=== PATIENT | female | born 1935 ===

== ENCOUNTER 2017-06-15 15:20 | Inpatient (IN) | payer MEDICARE, OTHER ==
--- NOTE | 2017-06-15 15:43 | Emergency Department Record ---
History of Present Illness - General Chief Complaint: Shortness of breath Stated Complaint: SOB Time Seen by Provider: 06/15/17 15:31 Source: Patient, Family Mode of Arrival: Ambulatory Limitations: No limitations - History of Present Illness Initial Comments: The patient is here from the [facility] due to being sent over because of hypoxia. She checked in there and was found to have a RA biox of 82%. Due to that the patient was sent to the ER. She states she has had progressively increasing dyspnea and SOB for 8-10 months and it has gotten a lot worse the last 2 weeks. She just moved up here from [place] a week ago and is living with her son. The patient states she did see a auto slip cover installer a month or 2 ago and was told she had scarring on her lungs. She has never smoked but is on 2 inhallers. 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 She was found to have an INR of just > 4.0 last week and was instructed to stop the Coumadin for the 4 day stretch. She thinks she may have taken her regular dose yesterday but is not sure. There is no complaint of CP, back pain, fever, or cough. MD Complaint: Shortness of breath Onset/Timin -: Month(s) Associated Symptoms: Cough Treatments Prior to Arrival: None - Related Data Home Oxygen Therapy: No Home Medications Medication Instructions Recorded Confirmed Last Taken Atorvastatin Calcium 20 mg PO QHS 06/15/17 06/15/17 Unknown Allergies Allergy/AdvReac Type Severity Reaction Status Date / Time No Known Drug Allergies Allergy Verified 06/15/17 15:30 Travel Screening - Travel/Exposure Within Last 30 Days Have you traveled within the last 30 days?: Yes Location Detail:: from [place] - Travel Symptoms Symptom Screening: None Review of Systems Constitutional: Denies: Chills, Fever Eyes: Denies: Eye discharge ENT: Reports: Congestion Respiratory: Reports: Cough, Dyspnea. Denies: Hemoptysis Cardiovascular: Denies: Chest pain Endocrine: Denies: Fatigue Gastrointestinal: Denies: Abdominal pain Genitourinary: Denies: Dysuria Musculoskeletal: Denies: Back pain Past Medical History - SOCIAL HISTORY Smoking Status: Never smoker Alcohol Use: None Drug Use: None - RESPIRATORY Hx Respiratory Disorders: Yes Hx Bronchitis: Yes Hx COPD: Yes Hx Pneumonia: Yes Comment:: chronic cough - CARDIOVASCULAR Hx Cardio Disorders: Yes Hx Deep Vein Thrombosis: Yes Comment:: high cholesterol - NEURO Hx Neuro Disorders: No - GI Hx GI Disorders: No - Hx Genitourinary Disorders: No - ENDOCRINE Hx Endocrine Disorders: No - MUSCULOSKELETAL Hx Musculoskeletal Disorders: No - PSYCH Hx Psych Problems: No - HEMATOLOGY/ONCOLOGY Hx Hematology/Oncology Disorders: No Family Medical History Any Significant Family History?: No Physical Exam - General General Appearance: Alert, Oriented x3, Cooperative, No acute distress - Head Head exam: Atraumatic, Normocephalic, Normal inspection - Eye Eye exam: Normal appearance, PERRL - ENT Throat exam: Normal inspection. negative: Tonsillar erythema, Tonsillar exudate - Neck Neck exam: Normal inspection, Full ROM. negative: Tenderness - Respiratory Respiratory exam: Rhonchi (over the lower 1/2 bilaterally.). negative: Normal lung sounds bilaterally, Accessory muscle use, Decreased breath sounds, Respiratory distress - Cardiovascular Cardiovascular Exam: Regular rate, Normal rhythm, Normal heart sounds - GI/Abdominal GI/Abdominal exam: Soft, Normal bowel sounds. negative: Tenderness - Extremities Extremities exam: Pedal edema (Chronic R>L.). negative: Normal inspection - Neurological Neurological exam: Alert. negative: Motor sensory deficit Course Vital Signs 06/15/17 06/15/17 15:23 15:33 Temperature 98.3 F Pulse Rate 96 H Respiratory 20 Rate Blood Pressure 131/83 Pulse Ox 82 L 98 - Reevaluation(s) Reevaluation #1: The patient is doing very well on the oxygen and her sats are now 98% on a 2L NC. 06/15/17 15:49 Reevaluation #2: The patient is doing well. She is on the oxygen and speaking in full sentences with no CHARITO. It appears she has significant CHF and we will start her on some Lasix. I did discuss keeping the patient in the hospital here at [facility] and she does agree to the plan. 06/15/17 16:46 Reevaluation #3: The patient is doing very well at this time. I did discuss the case with Mela MENARD) and she does accept the admission for Dr. Baca. 06/15/17 17:06 06/15/17 17:51 The patient is doing very well at this time. She did urinate about 1000cc's of urine after the first IV dose of Lasix. Medical Decision Making - Data Complexity MDM Data: Labs Ordered and/or Reviewed, X-Ray Ordered and/or Reviewed, EKG Ordered and/or Reviewed - Lab Data Result diagrams: 06/15/17 15:40 06/15/17 15:40 - EKG Data -: EKG Interpreted by Me (NSR at 90, Inverted T changes V1-4, III, and AVF.) - Radiology Data Radiology results: Report reviewed (CXR: Significant airspace dz most consistent with CHF.) Disposition Disposition: Admit Clinical Impression: Congestive heart failure Qualifiers: Congestive heart failure type: unspecified congestive heart failure type Congestive heart failure chronicity: unspecified congestive heart failure chronicity Qualified Code(s): I50.9 - Heart failure, unspecified Disposition: Still a Patient at [facility] Decision to Admit: Admit from ER Decision to Admit Date: 06/15/17 Decision to Admit Time: 17:07 Accepting Physician: Phuong Time Discussed w/Accepting Physician: 17:07 Condition: (2) Stable Forms: Patient Portal Access Time of Disposition: 17:07 Quality - Quality Measures Quality Measures: N/A - Blood Pressure Screening View Details: Yes Does Patient Have Any of the Following: No Blood Pressure Classification: Pre-Hypertensive BP Reading Systolic Measurement: 131 Diastolic Measurement: 83 Screening for High Blood Pressure: < Pre-Hypertensive BP, F/U Documented > [ G8950] Pre-Hypertensive Follow-up Interventions: Referral to alternative/primary care provider.
[2017-06-15] MEDS ORDERED: IPRATROPIUM/ALBUTEROL (0.5MG/3MG) NEB INH ONE (15:45)
[2017-06-15 15:52] LABS: BASO % 0.5 % (0-6); GRAN % 79.1 % (47-80); HEMATOCRIT 35.7 % (35.0-47.0); HEMOGLOBIN 11.1 gm/dl (11.6-16.0); LYMPH % 11.3 % (16-45); MEAN CELL VOLUME 91.8 fl (81-97); MEAN CORPUSCULAR HEMOGLOBIN 28.5 pg (27-33); MEAN CORPUSCULAR HGB CONC 31.1 g/dl (32-36); MEAN PLATELET VOLUME 9.8 fl (7.4-10.4); MONO % 7.1 % (0-9); PLATELET COUNT 397 K/uL (130-400); RED BLOOD COUNT 3.89 M/uL (3.80-5.40); RED CELL DISTRIBUTION WIDTH 15.2 % (11.5-14.5); WHITE BLOOD COUNT W/O DIFF 10.2 K/uL (4.2-12.2)
[2017-06-15 16:07] LABS: INR 1.13; PARTIAL THROMBOPLASTIN TIME 26.3 SECONDS (24.5-39.1); PROTHROMBIN TIME (PATIENT) 12.2 SECONDS (9.5-12.1)
[2017-06-15] MEDS ORDERED: ENOXAPARIN 100 MG/ML SYR SQ ONE (16:17)
[2017-06-15 16:21] LABS: ALB/GLOB RATIO 0.8 (1.1-1.8); ALBUMIN 3.1 g/dL (4.0-5.0); ALKALINE PHOSPHATASE 84 U/L (35-104); ALT/SGPT 20 U/L (<33); AST/SGOT 32 U/L (10.0-35.0); BLOOD UREA NITROGEN 20 mg/dL (8-23); CKMB 2.8 ng/mL (<3.77); CREATINE PHOSPHOKINASE 78 U/L (26-192); CREATININE 0.5 mg/dL (0.5-0.9); EST GLOMERULAR FILTRATION RATE > 60 mL/min; GLUCOSE,RANDOM 100 mg/dL (74-109)
[2017-06-15] MEDS ORDERED: FUROSEMIDE IV 40MG/4ML VIAL IVP ONE (16:26)
[2017-06-15] MEDS ORDERED: ALBUTEROL SULFATE 1.25 MG IH SCH (18:40)
[2017-06-15] MEDS ORDERED: WARFARIN 2.5 MG TAB PO SCH (18:40)
[2017-06-15] MEDS ORDERED: WARFARIN 5 MG TAB PO SCH (18:40)
[2017-06-15] MEDS: ENOXAPARIN 60 MG/0.6 ML SYR SQ SCH ×2 (18:58→21:24)
[2017-06-15 20:41] LABS: CKMB 3.2 ng/mL (<3.77)
[2017-06-15] MEDS: ATORVASTATIN 20 MG TABLET PO SCH (21:24)
[2017-06-16 04:29] LABS: BLOOD UREA NITROGEN 21 mg/dL (8-23); CREATININE 0.6 mg/dL (0.5-0.9); EST GLOMERULAR FILTRATION RATE > 60 mL/min; GLUCOSE,RANDOM 109 mg/dL (74-109)
[2017-06-16 04:30] LABS: BASO % 0.6 % (0-6); CKMB 2.6 ng/mL (<3.77); EOS % 4.5 % (0-6); GRAN % 69.5 % (47-80); HEMATOCRIT 35.1 % (35.0-47.0); HEMOGLOBIN 10.5 gm/dl (11.6-16.0); LYMPH % 17.4 % (16-45); MEAN CELL VOLUME 92.9 fl (81-97); MEAN CORPUSCULAR HGB CONC 29.9 g/dl (32-36); MEAN PLATELET VOLUME 10.1 fl (7.4-10.4); PLATELET COUNT 377 K/uL (130-400); RED BLOOD COUNT 3.78 M/uL (3.80-5.40); RED CELL DISTRIBUTION WIDTH 15.3 % (11.5-14.5); WHITE BLOOD COUNT W/O DIFF 9.4 K/uL (4.2-12.2)
[2017-06-16 04:31] LABS: MEAN CORPUSCULAR HEMOGLOBIN 27.7 pg (27-33)
--- NOTE | 2017-06-16 08:00 | RADIOLOGY REPORT ---
EXAM: CHEST, TWO VIEWS HISTORY: ACUTE DIFFICULTY BREATHING, FALL. TECHNIQUE: Two views of the chest were obtained. Comparison: None. Encounter: Initial. FINDINGS: Moderately dense patchy air space disease most notably in the right mid lung to lower lung field. Mild scattered air space disease throughout the left lung. Biapical pleural thickening likely due to scarring. The cardiac silhouette is top normal in size. Partial obscuration of the diaphragm. Osteopenia compromises bone detail. No displaced rib fractures. IMPRESSION: 1. MODERATELY DENSE AIR SPACE DISEASE IN THE RIGHT MID TO LOWER LUNG FIELD GREATER THAN MILDLY DENSE SCATTERED AIR SPACE DISEASE THROUGHOUT THE LEFT LUNG. FINDINGS COULD RELATE TO ASYMMETRIC PULMONARY EDEMA OR PNEUMONITIS. 2. NO DISPLACED RIB FRACTURES. JOB NUMBER: [id number] [facility]
[2017-06-16] MEDS: FUROSEMIDE IV 20MG/2ML VIAL IVP SCH ×2 (09:27→16:02)
[2017-06-16] MEDS: ACETAMINOPHEN 500 MG TABLET PO PRN (09:29)
[2017-06-16] MEDS: BENZONATATE 100 MG CAPSULE PO PRN (09:29)
[2017-06-16] MEDS: ENOXAPARIN 60 MG/0.6 ML SYR SQ SCH ×2 (09:30→21:18)
[2017-06-16] MEDS ORDERED: ALBUTEROL SULFATE (0.083%) 2.5 MG/3 ML NEB INH PRN (11:19)
[2017-06-16] MEDS ORDERED: AZITHROMYCIN 500 MG TABLET PO ONE (12:53)
[2017-06-16] MEDS: WARFARIN 5 MG TAB PO SCH (14:56)
[2017-06-16] MEDS: CEFTRIAXONE SODIUM 1 GM in 0.9 % SODIUM CHLORIDE 100ML 100 ML IVPB SCH ×2 (14:56→21:17)
[2017-06-16] MEDS ORDERED: WARFARIN 2.5 MG TAB PO SCH (16:00)
[2017-06-16] MEDS: BREO (FLUTICASONE/VILANTEROL) 200MCG/25MCG INHALER INH SCH (19:25)
[2017-06-16] MEDS: ATORVASTATIN 20 MG TABLET PO SCH (21:18)
[2017-06-17] MEDS: BENZONATATE 100 MG CAPSULE PO PRN (06:45)
[2017-06-17] MEDS: ACETAMINOPHEN 500 MG TABLET PO PRN (06:46)
[2017-06-17 07:02] LABS: INR 1.25; PROTHROMBIN TIME (PATIENT) 13.5 SECONDS (9.5-12.1)
--- NOTE | 2017-06-17 07:24 | CT ANGIOGRAM REPORT ---
EXAM: CTA OF THE CHEST HISTORY: CHRONIC DIFFICULTY BREATHING. TECHNIQUE: CTA of the chest was performed using pulmonary embolus protocol following IV administration of 100 ml of Omnipaque 350 contrast. Axial images were obtained with coronal and sagittal MIP reconstructions. Comparison: None. FINDINGS: The mediastinal vasculature enhances normally. There is no intraluminal filling defect to suggest pulmonary embolus. Negative for thoracic aortic aneurysm or dissection. Cardiomegaly. Significant enlargement of the right atrium. There is a small pericardial effusion. Limited evaluation of the upper abdomen is unremarkable. The osseous structures are grossly intact. Small bilateral pleural effusions, greater on the right. No pneumothorax. There are mixed interstitial and air space opacities bilaterally , as well as rather extensive areas of bronchiectasis, particularly in the lung bases as well as in the right middle lobe and lingula. Nodular air space opacities are present bilaterally. Findings may relate to a component of mucous plugging with small airway inflammation/infection and associated pneumonitis. Recommend follow-up to insure improvement. IMPRESSION: 1. NEGATIVE FOR PULMONARY EMBOLUS, THORACIC AORTIC ANEURYSM, OR DISSECTION. 2. CARDIOMEGALY. SMALL PERICARDIAL EFFUSION. 3. SMALL BILATERAL PLEURAL EFFUSIONS. 4. AREAS OF BRONCHIECTASIS, BRONCHIAL WALL THICKENING WELL MIXED INTERSTITIAL INTERSPACE OPACITIES BILATERALLY, MOST PRONOUNCED IN THE LUNG BASES. FINDINGS LIKELY RELATE TO AREAS OF PNEUMONITIS SECONDARY TO MUCOUS PLUGGING WITH SMALL AIRWAY INFLAMMATION AND INFECTION. RECOMMEND FOLLOW-UP TO INSURE RESOLUTION. JOB NUMBER: [id number] MTDD
[2017-06-17] MEDS: CEFTRIAXONE SODIUM 1 GM in 0.9 % SODIUM CHLORIDE 100ML 100 ML IVPB SCH ×2 (09:34→21:37)
[2017-06-17] MEDS: ENOXAPARIN 60 MG/0.6 ML SYR SQ SCH ×2 (09:34→21:38)
[2017-06-17] MEDS: AZITHROMYCIN 500 MG TABLET PO SCH (09:34)
[2017-06-17] MEDS ORDERED: FUROSEMIDE 20 MG TABLET PO SCH (10:00)
[2017-06-17] MEDS: BREO (FLUTICASONE/VILANTEROL) 200MCG/25MCG INHALER INH SCH (10:08)
--- NOTE | 2017-06-17 12:31 | History and Physical Report ---
CHIEF COMPLAINT: Dyspnea, cough, pulse ox around 82% in the emergency department. Patient denies a sore throat. She states that the cough has gotten worse in the last 3 or 4 days but has had dyspne a with exertion for the last 2 months. In the emergency department, she was seen by Dr. Ayala and admitted to the hospital with a diagnosis of congestive heart failure, hypoxia on room air, COPD. Her D-dimer was elevated in the emergency department at 0.89. A CTA was done after my evaluation to rule out a PE. PAST MEDICAL HISTORY: 1. COPD. 2. DVT in the right leg, in the thigh, July 2016, on Coumadin therapy. 3. Hypercholesterolemia. 4. Bronchiectasis of the lungs. CURRENT MEDICATIONS: On admission: Coumadin 5 mg on Thursday, Thursday, Thursday, 2.5 mg the rest of the week; benzoate 100 mg t.i.d., atorvastatin 20 mg each night, Symbicort 160/4.5 mcg 2 puffs b.i.d., Ventolin inhaler 1-2 puffs every 4 hours while awake. ALLERGIES: No known drug allergies. FAMILY/PSYCHOSOCIAL HISTORY: She never smoked cigarettes. No alcohol or drug use. No significant family history. REVIEW OF SYSTEMS: HEENT: She does have congestion and cough. No sore throat. Cardiovascular: No chest pain, palpitations, arrhythmias. Respiratory: She is short of breath with exertion and a chronic cough. Gastrointestinal: No nausea, vomiting, diarrhea, black stools, or bloody stools. Genitourinary: No dysuria, hematuria, frequency, or burning on urination. Musculoskeletal: She has arthritis in all the joints. Neurologic: No CVA, paralysis, or paresthesias. Gynecological: No lumps in her breasts or abnormal vaginal bleeding at this time. Endocrine: No diabetes or thyroid disease. Integument: No rash, ulcers, change in moles, or yellow skin. PHYSICAL EXAMINATION: VITAL SIGNS: Height 5 feet. Weight 124 pounds. Temperature 97.8. Pulse 81. Blood pressure 119/69. Respiratory rate 18. Pulse ox 97% on 2 liters. She was 82% with room air pulse ox in the emergency department. HEENT: Pupils equal, round, and reactive to light and accommodation. Extraocular muscles intact. Fundoscopic exam benign. Tympanic membranes are negative. No oral lesions. NECK: Supple. No jugular venous distention. No hepatojugular reflux. No carotid bruits. Thyroid is smooth. LUNGS: She has bilateral wheezing, bilateral rales, and congestion. HEART: Regular rate and rhythm without murmurs, clicks, rubs, or gallops. ABDOMEN: Soft, nontender, no hepatosplenomegaly, no masses, no tenderness. Bowel sounds active. No bruits. EXTREMITIES: No pitting edema. No cyanosis, no clubbing. Full range of motion. Peripheral pulses good. GYNECOLOGICAL/BREASTS: Deferred. RECTAL: Deferred. NEUROLOGIC: Cranial nerves 2 through 12 intact. No gross defects. Sensation normal. Strength normal. Deep tendon refluxes good bilaterally. Babinski is negative. MENTAL STATUS: Alert and oriented x3. IMPRESSION: 1. COPD with exacerbation and infiltrate in the right lung. 2. Possible pneumonia. 3. Possible CHF. 4. Fluid overload. 5. DVT of the right leg and on Coumadin therapy. PLAN: Rocephin IV 1 gram every 12 hours, azithromycin 500 mg daily. Lasix has been given to her twice a day IV. We will decrease it to once a day, 20 mg orally. Cardiac monitoring/echocardiogram was done today. We will compare it to the echo from September 2016, which showed a normal echo. MTDD
[2017-06-17] MEDS ORDERED: LISINOPRIL 5 MG TABLET PO ONE (16:45)
[2017-06-17] MEDS: WARFARIN 5 MG TAB PO SCH (18:08)
[2017-06-17] MEDS: ATORVASTATIN 20 MG TABLET PO SCH (21:37)
[2017-06-18] MEDS: ACETAMINOPHEN 500 MG TABLET PO PRN (07:26)
[2017-06-18] MEDS: BENZONATATE 100 MG CAPSULE PO PRN (07:29)
[2017-06-18 07:36] LABS: INR 1.42; PROTHROMBIN TIME (PATIENT) 15.4 SECONDS (9.5-12.1)
--- NOTE | 2017-06-18 08:40 | RADIOLOGY REPORT ---
EXAM: CHEST, TWO VIEWS HISTORY: DIFFICULTY BREATHING. TECHNIQUE: Frontal and lateral views of the chest were obtained. Comparison: 06/15/17 chest. FINDINGS: The heart size is stable. Interstitial anterior space opacities bilaterally with small bilateral effusions. No pneumothorax. IMPRESSION: LITTLE INTERVAL CHANGE. JOB NUMBER: [id number] MTDD
[2017-06-18] MEDS: BREO (FLUTICASONE/VILANTEROL) 200MCG/25MCG INHALER INH SCH (09:44)
[2017-06-18] MEDS: CEFTRIAXONE SODIUM 1 GM in 0.9 % SODIUM CHLORIDE 100ML 100 ML IVPB SCH (09:48)
[2017-06-18] MEDS: AZITHROMYCIN 500 MG TABLET PO SCH (10:03)
[2017-06-18] MEDS: ENOXAPARIN 60 MG/0.6 ML SYR SQ SCH (10:04)
[2017-06-18] MEDS ORDERED: FUROSEMIDE 20 MG TABLET PO ONE (10:36)
[2017-06-18] MEDS ORDERED: METHYLPREDNISOLONE SOD 40MG/VIAL IVP ONE (10:49)
[2017-06-18 11:02] LABS: BLOOD UREA NITROGEN 16 mg/dL (8-23); CREATININE 0.4 mg/dL (0.5-0.9); EST GLOMERULAR FILTRATION RATE > 60 mL/min; GLUCOSE,RANDOM 86 mg/dL (74-109)
[2017-06-18] MEDS ORDERED: WARFARIN 5 MG TAB PO ONE (12:16)
--- NOTE | 2017-06-18 12:17 | Discharge Note ---
VTE H&P Assessment - Risk for VTE Risk for VTE: Yes Risk Level: Moderate Risk Assessment Date: 06/15/17 Risk Assessment Time: 08:00 VTE Orders Placed or Will Be Placed: Yes Discharge Medications - Discharge Medications Prescriptions: Azithromycin [Zithromax] 500 mg PO DAILY #7 tab Cephalexin [Keflex] 500 mg PO QID #40 cap Home Medications: Ambulatory Orders Albuterol Sulfate [Ventolin Hfa] 1 - 2 puff IH Q4-6HR #1 inhaler 06/15/17 [Last Taken Unknown] Atorvastatin Calcium 20 mg PO QHS 06/15/17 [Last Taken Unknown] Benzonatate 100 mg PO TID PRN cap 06/15/17 [Last Taken Unknown] Budesonide/Formoterol Fumarate [Symbicort 160-4.5 Mcg Inhaler] 2 puff IH BID puff 06/15/17 [Last Taken 06/15/17] Warfarin Sodium 2.5 mg PO SUTUTHSA tab 06/15/17 [Last Taken Unknown] Warfarin Sodium 5 mg PO MOWEFR tab 06/15/17 [Last Taken Unknown] Acetaminophen [Tylenol 500Mg Tab] 1,000 mg PO Q8H PRN tablet 06/18/17 [Last Taken Unknown] Azithromycin [Zithromax] 500 mg PO DAILY #7 tab 06/18/17 [Last Taken Unknown] Benzonatate [Tessalon Perles] 100 mg PO TID PRN capsule 06/18/17 [Last Taken Unknown] Cephalexin [Keflex] 500 mg PO QID #40 cap 06/18/17 [Last Taken Unknown] Discharge Note - Date Date of Discharge Note: 06/18/17 Disposition: Home, Self-Care Condition: (2) Stable Additional Instructions: follow up with Dr. Ortiz on thursday at 11 am [id number] take coumadin 5mg on Thursday and thursday and thursday and 2.5 mg on , , and thursday home oxygen 2 liters per minute Forms: Patient Portal Access Activity at Discharge: Increase Activity as Tolerated Diet at Discharge: Low Salt Diet
--- NOTE | 2017-06-18 13:19 | Discharge Summary ---
DATE OF DISCHARGE: 06/18/2017 DISCHARGE DIAGNOSES: 1. Pneumonia, right middle lobe pneumonia. 2. Chronic obstructive pulmonary disease. 3. Diastolic heart failure. 4. Chronic kidney disease stage 2. 5. History of DVT of the right leg and thigh, on Coumadin therapy. 6. History of bronchiectasis of the lungs. 7. Hypoxia requiring home oxygen. ATTENDING PHYSICIAN: Shukri Ortiz DO REASON FOR HOSPITALIZATION: Dyspnea, cough, and hypoxia. This 81-year-old female presented to the emergency department. Pulse ox in the emergency department was 82%. She denies sore throat. She has a cough. She is progressively worse, dyspnea over the last 3-4 days. She is new to the area. She moved up from [place]. Dr. Ayala evaluated the patient and admitted the patient to the hospital with congestive heart failure, hypoxia on room air. D-dimer was elevated in the emergency department at 0.89. CTA was done after my evaluation to rule out PE. THERAPY PROVIDED: IV Rocephin and azithromycin. One dose of Solu-Medrol. Lasix initially 20 mg b.i.d., switched down to 20 mg daily and then it looked like she was getting dry, so we stopped the Lasix. We will follow outpatient closely. Started lisinopril 2.5 mg a day, low dose. CONDITION ON DISCHARGE: Improved; however, her hypoxia is still bad. She drops down to 84% on room air. She is improved. She is ambulatory. She is much more ambulatory. She is feeling better. She is still brining up clear sputum. DISCHARGE INSTRUCTIONS: Follow up with Dr. Ortiz on 06/22/2017, at 11 a.m. Antibiotics will be Keflex 500 mg 4 times a day, Z-Gordo 500 mg daily for 7 days. Continue her home medications. The Coumadin we are increasing slightly to take 5 mg on Thursday/Thursday/Thursday/Thursday and 2.5 mg Thursday//Thursday. Lisinopril low dose 2.5 mg once a day. Home oxygen at 2L/min nasal cannula. ADDENDUM: Her blood pressure was running low, 100/40. Decided to hold the lisinopril until in the office because of her low blood pressures. [facility]
--- NOTE | 2017-06-18 15:21 | Medical Records Consult ---
DATE OF CONSULTATION: 06/17/17 REASON FOR CONSULTATION: ACUTE CONGESTIVE HEART FAILURE. HISTORY: Ms. Evans is 82 years old, who moved from [place] to [place] the past few days to live with her son. She had been having progressive dyspnea and was asked to follow-up with a physician here in the local area. Ms. Evans yesterday presented for INR check at [facility] because she has a history of chronic DVTs and is on Warfarin. When she presented, she was found to have pulse oximetry of 82% and was quite dyspneic and therefore she was admitted to [facility]. Chest x-ray demonstrates evidence of bilateral pleural effusions along with possible infiltrate. She has been having a productive cough with greenish sputum. She has had a history of bronchitis and pneumonia. Ms. Evans has no previous history of coronary artery disease, diabetes, hypertension, or tobacco use. She is on Atorvastatin at home for hyperlipidemia. Her laboratory profile was essentially unremarkable except for a pro BNP that was greater than 8,800. She was given Furosemide IV for the past few days and has had significant improvement in her dyspnea although she remains dyspneic, she can now walk across the room. She denies angina, palpitations, TIA, or syncope. PAST MEDICAL HISTORY: Significant for bronchitis and pneumonia. DVT in the and the last one in 2016. PAST SURGICAL HISTORY: Noncontributory. FAMILY HISTORY: Noncontributory. PHYSICAL EXAM: VITAL SIGNS: She is currently afebrile. Blood pressure 131/83. Pulse 96. Respirations 15. LUNGS: There are rhonchi bilaterally. CARDIAC EXAM: Normal. ABDOMEN: Soft. EXTREMITIES: Reveal no significant peripheral edema. ECG: Demonstrates sinus rhythm with nonspecific T-wave changes. LABORATORY: Her white count is 9.4, hemoglobin 10.5, platelets 377,000, sodium 142, potassium 4.1, BUN 20, creatinine 0.5. CK-MBs were negative. Troponin was negative x3. ECHOCARDIOGRAM: Echocardiogram on 06/16/2017 demonstrated normal ejection fraction with severe right-sided enlargement and grade 1 diastolic dysfunction. She has mild to moderate elevation of pulmonary pressures. IMPRESSION/PLAN: Ms. Evans is 81 years old, who presents with acute bronchitis and acute diastolic congestive heart failure. She has no previous history of coronary artery disease or heart failure symptoms. She has poor diet and eats fast food with significant salt intake. Ms. Evans has responded to diuretics pretty well but she continues to have a very productive cough. Ms. Evans is on appropriate antibiotic regimen per the Primary Team. At this time , I recommend discontinue diuretics since she is no longer having significant urine output. Ms. Evans should be on low-dose FITO on discharge. I would consider Lisinopril 5 mg daily. She will remain on Warfarin for history of recurrent DVTs. Ms. Evans's echo demonstrates normal ejection fraction with grade 1 diastolic dysfunction. As an outpatient, she will require a stress Cardiolite. Upon discharge, please have her follow-up with [facility] in one to two weeks at which time we will schedule testing as appropriate. JOB NUMBER: [id number] MTDD
== END 2017-06-18 15:26 | disposition home or self-care (01) | DRG 193 ==
LOC: ER 15:20 → MEDSURG 17:59
PROVIDERS: ADMIT Internal Medicine; ATTEND Emergency Medicine
DX: J18.9 Pneumonia, unspecified organism (principal); I50.31 Acute diastolic (congestive) heart failure; J44.0 Chronic obstructive pulmonary disease with (acute) lower respiratory infection; E78.00 Pure hypercholesterolemia, unspecified; J44.1 Chronic obstructive pulmonary disease with (acute) exacerbation; R09.02 Hypoxemia; Z86.718 Personal history of other venous thrombosis and embolism; Z79.01 Long term (current) use of anticoagulants; N18.2 Chronic kidney disease, stage 2 (mild)
CPT/HCPCS: 71020; 71275; 80048; 80053; 82550; 82553; 83880; 84484; 85025; 85379; 85610; 85730; 93005; 93010; 93041; 94620; 94640; 94760; 94761; 96374; 99223; 99233; 99239; 99285; J1650; J1940; J2920

== ENCOUNTER 2017-08-27 09:20 | Inpatient (IN) | payer MEDICARE, OTHER ==
[2017-08-27] MEDS ORDERED: IPRATROPIUM/ALBUTEROL (0.5MG/3MG) NEB INH ONE (09:41)
[2017-08-27] MEDS ORDERED: METHYLPREDNISOLONE PF 125MG/VIAL IVP ONE (09:41)
--- NOTE | 2017-08-27 09:48 | Emergency Department Record ---
History of Present Illness - General Chief Complaint: Shortness of breath Stated Complaint: CHARITO Time Seen by Provider: 08/27/17 09:35 Source: Patient Mode of Arrival: Wheelchair Limitations: No limitations - History of Present Illness Initial Comments: The patient is here with family due to having a week hx of cough, SOB, CHARITO, and weakness. She also describes a lack of energy. There has been no reported fever , chills, CP, back pain or falls. The patient has a hx of COPD, CHF, and pneumonia and is on home O2 2 liters. MD Complaint: Cough, Shortness of breath Onset/Timin -: Days(s) Improves With: Nothing Worsens With: Nothing Known History Of: Congestive heart failure, COPD Associated Symptoms: Cough, Nausea/vomiting Treatments Prior to Arrival: None - Related Data Home Oxygen Therapy: Yes Home Oxygen Amount: 2 Liters Home Medications Medication Instructions Recorded Confirmed Last Taken Albuterol Sulfate 0.083% [Neb] 3 ml NEB .EVERY 4-6 HOURS PRN 08/27/17 08/27/17 Unknown Furosemide [Lasix] 20 mg PO DAILY 08/27/17 08/27/17 Unknown Potassium Chloride 10 meq PO DAILY 08/27/17 08/27/17 Unknown Previous Rx's Medication Instructions Recorded Acetaminophen [Tylenol 500Mg Tab] 1,000 mg PO Q8H PRN tablet 06/18/17 Allergies Allergy/AdvReac Type Severity Reaction Status Date / Time No Known Drug Allergies Allergy Verified 08/27/17 09:27 Travel Screening - Travel/Exposure Within Last 30 Days Have you traveled within the last 30 days?: No Review of Systems Constitutional: Reports: Malaise. Denies: Chills, Fever Eyes: Denies: Eye discharge ENT: Reports: Congestion Respiratory: Reports: Cough, Dyspnea. Denies: Hemoptysis Cardiovascular: Denies: Arrhythmia, Chest pain Endocrine: Reports: Fatigue Gastrointestinal: Denies: Abdominal pain Genitourinary: Denies: Dysuria Musculoskeletal: Denies: Back pain Past Medical History - SOCIAL HISTORY Smoking Status: Never smoker Alcohol Use: None Drug Use: None - RESPIRATORY Hx Respiratory Disorders: Yes Hx Bronchitis: Yes Hx COPD: Yes Hx Pneumonia: Yes Comment:: chronic cough - CARDIOVASCULAR Hx Cardio Disorders: Yes Hx Deep Vein Thrombosis: Yes Comment:: high cholesterol - NEURO Hx Neuro Disorders: No - GI Hx GI Disorders: No - Hx Genitourinary Disorders: No - ENDOCRINE Hx Endocrine Disorders: No - MUSCULOSKELETAL Hx Musculoskeletal Disorders: No - PSYCH Hx Psych Problems: No - HEMATOLOGY/ONCOLOGY Hx Hematology/Oncology Disorders: No Family Medical History Any Significant Family History?: No Physical Exam - General General Appearance: Alert, Oriented x3, Cooperative, No acute distress - Head Head exam: Atraumatic, Normocephalic, Normal inspection - Eye Eye exam: Normal appearance, PERRL - ENT Throat exam: Normal inspection. negative: Tonsillar erythema, Tonsillar exudate - Neck Neck exam: Normal inspection, Full ROM. negative: Lymphadenopathy, Tenderness - Respiratory Respiratory exam: Rhonchi (at the bases.), Wheezes. negative: Normal lung sounds bilaterally - Cardiovascular Cardiovascular Exam: Regular rate, Normal rhythm, Normal heart sounds, Tachycardia - GI/Abdominal GI/Abdominal exam: Soft, Normal bowel sounds. negative: Tenderness - Extremities Extremities exam: Normal inspection, Full ROM, Normal capillary refill. negative: Tenderness - Neurological Neurological exam: Alert. negative: Motor sensory deficit Course Vital Signs 08/27/17 09:29 Temperature 99.0 F Pulse Rate 121 H Respiratory 38 H Rate Blood Pressure 127/58 Pulse Ox 88 L - Reevaluation(s) Reevaluation #1: The patient is doing much better at this time. Her breathing is improved and her biox is now 92-93%. Her RR is improved and HR is now 90. I did discuss the lab and xray results with the patient and the need for admission. 08/27/17 10:59 Reevaluation #2: I did discuss the case with Dr. Ortiz and he does accept the admission. 08/27/17 11:11 Medical Decision Making - Data Complexity MDM Data: Labs Ordered and/or Reviewed, X-Ray Ordered and/or Reviewed, EKG Ordered and/or Reviewed - Lab Data Result diagrams: 08/27/17 09:35 08/27/17 09:35 - EKG Data -: EKG Interpreted by Me EKG: No Acute Changes, Unchanged From Previous - Radiology Data Radiology results: Report reviewed (CXR: Diffuse interstitial changes, no sig change from 06/09.) Disposition Disposition: Admit Clinical Impression: COPD exacerbation Pneumonia Qualifiers: Pneumonia type: due to unspecified organism Laterality: bilateral Lung location : unspecified part of lung Qualified Code(s): J18.9 - Pneumonia, unspecified organism Disposition: Still a Patient at [facility] Decision to Admit: Admit from ER Decision to Admit Date: 08/27/17 Decision to Admit Time: 11:12 Accepting Physician: Diana Time Discussed w/Accepting Physician: 11:12 Condition: (2) Stable Time of Disposition: 11:12 Quality - Quality Measures Quality Measures: N/A - Blood Pressure Screening View Details: Yes Does Patient Have Any of the Following: Active Dx of HTN Blood Pressure Classification: Pre-Hypertensive BP Reading Systolic Measurement: 127 Diastolic Measurement: 58 Screening for High Blood Pressure: Patient Exclusion, Hx of HTN [[id number]]
[2017-08-27 09:52] LABS: HEMATOCRIT 33.9 % (35.0-47.0); HEMOGLOBIN 10.3 gm/dl (11.6-16.0); MEAN CELL VOLUME 92.9 fl (81-97); MEAN CORPUSCULAR HEMOGLOBIN 28.2 pg (27-33); MEAN CORPUSCULAR HGB CONC 30.4 g/dl (32-36); PLATELET COUNT 340 K/uL (130-400); RED BLOOD COUNT 3.65 M/uL (3.80-5.40); RED CELL DISTRIBUTION WIDTH 15.8 % (11.5-14.5); WHITE BLOOD COUNT W/O DIFF 17.6 K/uL (4.2-12.2)
[2017-08-27 10:06] LABS: PLATELET ESTIMATE NORMAL (NORMAL)
[2017-08-27 10:09] LABS: INFLUENZA A NEGATIVE (NEGATIVE); INFLUENZA B NEGATIVE (NEGATIVE)
[2017-08-27 10:11] LABS: PARTIAL THROMBOPLASTIN TIME 56.2 SECONDS (24.5-39.1)
[2017-08-27 10:15] LABS: BLOOD UREA NITROGEN 21 mg/dL (8-23); CREATININE 0.6 mg/dL (0.5-0.9); EST GLOMERULAR FILTRATION RATE > 60 mL/min; GLUCOSE,RANDOM 90 mg/dL (74-109)
[2017-08-27 10:24] LABS: INR 5.52; PROTHROMBIN TIME (PATIENT) 60.7 SECONDS (9.5-12.1)
[2017-08-27] MEDS ORDERED: FUROSEMIDE IV 40MG/4ML VIAL IVP ONE (10:36)
[2017-08-27] MEDS ORDERED: AZITHROMYCIN 500 MG in 0.9 % SODIUM CHLORIDE 250ML 250 ML IVPB ONE (10:43)
[2017-08-27] MEDS ORDERED: CEFTRIAXONE SODIUM 1 GM in 0.9 % SODIUM CHLORIDE 100ML 100 ML IVPB ONE (10:43)
[2017-08-27] MEDS: METOPROLOL TART 5 MG/5 ML VIAL IV ONE ×2 (10:51→10:59)
[2017-08-27 10:54] LABS: CKMB 1.6 ng/mL (<3.77); CREATINE PHOSPHOKINASE 64 U/L (26-192)
--- NOTE | 2017-08-27 12:41 | RADIOLOGY REPORT ---
EXAM: CHEST, TWO VIEWS HISTORY: DIFFICULTY IN BREATHING, CONGESTED, PRODUCTIVE COUGH WITH MALAISE FOR FOUR DAYS. TECHNIQUE: AP sitting and lateral views of the chest were obtained. Comparison: Two view chest 06/18/17. FINDINGS: Stable cardiomegaly. Bilateral infiltrate which is in a slightly different distribution than previously particularly on the right. There are probably small bibasilar effusions as well. This may be a combination of some chronic interstitial infiltrate and small patchy areas of acute infiltrate superimposed. The presumed small bilateral pleural effusions could be chronic or recurrent acute effusions. Short term follow-up suggested. The lungs appear hyperinflated suggesting underlying COPD. Mild thoracic dextroscoliosis. Quite prominent apical pleural thickening bilaterally similar to before. IMPRESSION: 1. CARDIOMEGALY. 2. SMALL BILATERAL PLEURAL EFFUSIONS. 3. PATCHY INFILTRATE BILATERALLY IN A SLIGHTLY DIFFERENT DISTRIBUTION THAN SEEN ON 06/18/17 DESCRIBED ABOVE. 4. PROMINENT APICAL PLEURAL THICKENING BILATERALLY. 5. FOLLOW-UP FILMS SUGGESTED. JOB NUMBER: [id number] [facility]
[2017-08-27] MEDS ORDERED: ALBUTEROL SULFATE (0.083%) 2.5 MG/3 ML NEB INH PRN (13:19)
[2017-08-27] MEDS: IPRATROPIUM/ALBUTEROL (0.5MG/3MG) NEB INH SCH ×3 (13:57→22:25)
--- NOTE | 2017-08-27 14:21 | History and Physical Report ---
DATE OF EVALUATION: 08/27/2017 DATE OF ADMISSION: 08/27/2017 CHIEF COMPLAINT: Dyspnea, cough progressively worse over the last 3-4 days. HISTORY OF THE PRESENT ILLNESS: She has been feeling rundown since Day. She is normally [id number]-[id number], but it is much worse in the last 3-4 days. She has a bad cough, dry mouth, and nausea. She was evaluated in the emergency department by Dr. Ayala, admitted to the hospital for pneumonia, COPD exacerbation, and diastolic heart failure. She is also on Coumadin because of a history of a DVT of her right leg. PAST MEDICAL HISTORY: COPD on home oxygen at 2 liters per minute nasal cannula , history of a DVT of the right leg July 2016, on Coumadin therapy. Hypercholesterolemia. Bronchiectasis of the lungs. CURRENT MEDICATIONS: Warfarin 5 mg Thursday, Thursday, Thursday; 2.5 mg Thursday, Thursday, Thursday, . Potassium chloride 10 mEq a day, Lasix 20 mg a day, Symbicort 160/4.5 two puffs b.i.d., atorvastatin 20 mg a day, Ventolin 2 puffs every 4 hours, albuterol nebs every 4 hours p.r.n., Tylenol p.r.n. ALLERGIES: No known drug allergies. FAMILY PSYCHOSOCIAL HISTORY: She has never smoked cigarettes. No alcohol or drug use. No significant family history. REVIEW OF SYSTEMS: HEENT: Over the last 3 or 4 days, congestion and cough much worse than usual. Vyhchzqf-bn-riw is living with her is also sick with a cough for the last 2 weeks. She denies a sore throat. She states she is coughing up thicker mucus than normal, and she is more rzzks-lw-qcgemb than normal. Cardiovascular: No chest pain, palpitations, or arrhythmias. Gastrointestinal: No nausea, vomiting, diarrhea, black stools, or bloody stools. Genitourinary: No dysuria, hematuria, frequency, or burning on urination. Musculoskeletal: She has arthritis in all her joints. Neurologic: No CVA, paralysis, or paresthesias. Gynecologic: No lumps in her breast or abnormal vaginal bleeding. Endocrine: No diabetes or thyroid disease. Integument: No rash, ulcers, changes in moles, or yellow skin. PHYSICAL EXAMINATION: VITAL SIGNS: Height 5'. Weight 125 pounds. Temperature 98.6. Pulse 57. Blood pressure 109/64. Respiratory rate 26. Pulse ox 91% on 2 liters per nasal cannula. We moved her up to 3 liters nasal cannula after my exam. HEENT: Pupils equal, round, and reactive to light and accommodation. Extraocular muscles intact. Throat is clear. Nose is clear. Tympanic membranes restrepo. NECK: Supple. No jugular venous distention. No hepatojugular reflux. No carotid bruits. Thyroid is smooth. CARDIOVASCULAR: Regular rate and rhythm without murmurs, clicks, rubs, or gallops. RESPIRATORY: She has decreased breath sounds bilaterally and some scant wheezing with deep inspiration and cough spasmodically with a deep inspiration. ABDOMEN: Soft, nontender, no hepatosplenomegaly. No masses or tenderness. Bowel sounds active. No bruits. EXTREMITIES: No pitting edema. No cyanosis or clubbing. Full range of motion. Peripheral pulses good. BREASTS: Deferred. GYNECOLOGIC: Deferred. RECTAL: Deferred. NEUROLOGIC: Cranial nerves II-XII intact. No gross deficits. Sensation normal. Strength normal. Deep tendon reflexes equal bilaterally. Babinski is negative. MENTAL STATUS: Alert and oriented x3. IMPRESSION: 1. Pneumonia. 2. Acute exacerbation of COPD. 3. History of DVT of the right leg and on Coumadin therapy. 4. Diastolic heart failure. 5. Hypoxia and on home oxygen at 2 liters per minute nasal cannula. 6. Hypercholesterolemia. 7. Bronchiectasis of her lungs. ADDENDUM INPATIENT CERTIFICATION: Admit to Inpatient Care. Based on my medical assessment and after consideration of patient risk factors, age, comorbidities, and patient presenting symptoms on Acute, I expect this patient will remain in the hospital greater than or equal to 2 midnights, and the services needed warrant inpatient care because of her COPD, oxygen requirements, and further evaluation. ESTIMATED LENGTH OF STAY: 3 days. The patient may reasonably be expected to be discharged or transferred to a hospital within 96 hours after admission to [facility]. I certify that my determination is in accordance with my understanding of Medicare requirements for reasonable and necessary inpatient services. GULSHAN
[2017-08-27] MEDS: METHYLPREDNISOLONE PF 125MG/VIAL IVP SCH ×2 (15:29→22:11)
[2017-08-27] MEDS: CEFTRIAXONE SODIUM 1 GM in 0.9 % SODIUM CHLORIDE 100ML 100 ML IVPB SCH (22:05)
[2017-08-27] MEDS: ATORVASTATIN 20 MG TABLET PO SCH (22:05)
[2017-08-27] MEDS: BUDESONIDE INH SCH (22:39)
[2017-08-27] MEDS: FORMOTEROL FUMARATE INH SCH (22:39)
[2017-08-27] MEDS: BENZONATATE 100 MG CAPSULE PO PRN (22:55)
[2017-08-28] MEDS: IPRATROPIUM/ALBUTEROL (0.5MG/3MG) NEB INH SCH ×5 (06:20→21:26)
[2017-08-28] MEDS: METHYLPREDNISOLONE PF 125MG/VIAL IVP SCH (06:35)
[2017-08-28 06:39] LABS: BASO % 0.1 % (0-6); HEMATOCRIT 32.2 % (35.0-47.0); HEMOGLOBIN 9.7 gm/dl (11.6-16.0); LYMPH % 4.3 % (16-45); MEAN CELL VOLUME 93.3 fl (81-97); MEAN CORPUSCULAR HEMOGLOBIN 28.1 pg (27-33); MEAN CORPUSCULAR HGB CONC 30.1 g/dl (32-36); MEAN PLATELET VOLUME 9.9 fl (7.4-10.4); MONO % 2.7 % (0-9); PLATELET COUNT 343 K/uL (130-400); RED BLOOD COUNT 3.45 M/uL (3.80-5.40); RED CELL DISTRIBUTION WIDTH 15.7 % (11.5-14.5); WHITE BLOOD COUNT W/O DIFF 13.2 K/uL (4.2-12.2)
[2017-08-28 07:02] LABS: PARTIAL THROMBOPLASTIN TIME 63.9 SECONDS (24.5-39.1)
[2017-08-28 07:28] LABS: INR 7.97; PROTHROMBIN TIME (PATIENT) 87.9 SECONDS (9.5-12.1)
--- NOTE | 2017-08-28 07:52 | Physician Progress Note ---
DVT/PE Assessment - Risk for VTE Risk for VTE: Yes Risk Level: Moderate Risk Assessment Date: 08/27/17 Risk Assessment Time: 13:00 VTE Orders Placed or Will Be Placed: Yes VTE Reason for No Prophylaxis: Complication of Medical Care (on coumadin and levels high , no further treatment till levels come down) - Active Medicaitons Current Medications: Current Medications Acetaminophen (Tylenol 500mg Tab) 500 mg PO Q6H PRN PRN Reason: PAIN/TEMP Albuterol Sulfate () 2.5 mg INH Q1H PRN PRN Reason: SHORTNESS OF BREATH Albuterol/Ipratropium (Duoneb) 3 ml INH RESP.Q4H.WA [facility] Last Admin: 08/28/17 06:20 Dose: 3 ml Atorvastatin Calcium (Lipitor) 20 mg PO QHS [facility] Last Admin: 08/27/17 22:05 Dose: 20 mg Benzonatate (Tessalon) 100 mg PO TID PRN PRN Reason: COUGH Last Admin: 08/27/17 22:55 Dose: 100 mg Azithromycin 500 mg/ Sodium (Chloride) 250 mls @ 250 mls/hr IVPB Q24H [facility] Stop: 09/02/17 11:01 Ceftriaxone Sodium 1 gm/ (Sodium Chloride) 100 mls @ 100 mls/hr IVPB Q12H [facility] Stop: 09/01/17 22:01 Last Infusion: 08/27/17 23:14 Dose: Infused Methylprednisolone Sodium Succinate (Solu-Medrol) 60 mg IVP Q8HR [facility] Last Admin: 08/28/17 06:35 Dose: 60 mg Non-Formulary Misc (Budesonide/Formoterol Fumarate [Symbicort 80-4.5 Mcg Inhaler] 2 Puf 2 puff INH BID [facility] Last Admin: 08/27/17 22:39 Dose: 2 puff
[2017-08-28] MEDS: ACETAMINOPHEN 500 MG TABLET PO PRN ×2 (08:46→17:50)
[2017-08-28] MEDS ORDERED: POTASSIUM CHLORIDE 10 MEQ TAB PO SCH (10:00)
[2017-08-28] MEDS ORDERED: METHYLPREDNISOLONE PF 125MG/VIAL IVP SCH (10:00)
[2017-08-28] MEDS ORDERED: FUROSEMIDE IV 20MG/2ML VIAL IVP SCH (10:00)
[2017-08-28] MEDS: CEFTRIAXONE SODIUM 1 GM in 0.9 % SODIUM CHLORIDE 100ML 100 ML IVPB SCH ×2 (10:05→22:09)
[2017-08-28] MEDS: FORMOTEROL FUMARATE INH SCH ×2 (10:22→21:36)
[2017-08-28] MEDS: BUDESONIDE INH SCH ×2 (10:22→21:36)
[2017-08-28] MEDS ORDERED: PREDNISONE 20 MG TAB PO ONE (10:39)
--- NOTE | 2017-08-28 11:41 | Rehab Evaluation ---
Patient Information - Patient Information Diagnosis: Acute COPD with pneumonia Ordered Treatment: PT Evaluate and Treat Status: Initial Evaluation Surgery: No History: Detail (The patient presented in ED on 08/27/17 with complaints of shortness of breath, coughing and weakness. The patient was admitted to the Rehab floor.) Past Medical/Surgical Hx: PAST MEDICAL/SURGICAL HISTORY Past Surgical History None PMH - Respiratory Hx Respiratory Disorders Yes Hx Bronchitis Yes Hx Chronic Obstructive Yes Pulmonary Disease (COPD) Hx Pneumonia Yes Comment: chronic cough PMH - Cardiovascular Hx Cardiovascular Disorders Yes Hx Deep Vein Thrombosis Yes Comment: high cholesterol PMH - Neuro Hx Neurological Disorders No PMH - GI Hx Gastrointestinal Disorders No PMH - Hx Genitourinary Disorders No PMH - Endocrine Hx Endocrine Disorders No PMH - Musculoskeletal Hx Musculoskeletal Disorders No PMH - Psych Hx Psychiatric Problems No PMH - Hematology/Oncology Hx Hematology/Oncology No Disorders Premorbid Status: Detail (The patient was ambulatory without devices and was ambulating household distances. The patient has assistance with labor relations specialist. The patient is independent with all ADL's.) Social History: Detail (The patient lives in a one story home with her son. The house has 3 steps and a hand rail at the enterance from the garage ( enterance she commonly uses). The bathroom is equipped with a tub/shower combination and standard toilet with no grab bars. The patient has no medical equipment except for O2.) Precautions: Allison, Fall - Time With Patient Total Time Spent With Patient (Min): 20 Treatment Procedures: Detail (Initial Evaluation) Subjective Information - Subjective Information Per Patient (The patient had no complaints of pain. The patient does complain of overall weakness.) Objective Data - Mental Status Patient Orientation: Oriented x3 - Visual Perception Appears within normal limits for therapeutic activities - ROM Within normal limits (The patient's UE and LE AROM is WFL.) - Strength/Tone Within normal limits (The patient's UE strength is genrally 4+ to 5/5.), Not within normal limits (The patient's L LE strength is generally 4+ to 5/5 . Patient 's R LE strength is 4+/5 except for hip flexor, abductors and adductors which were 4/5.) - Bed Mobility Independent (The patient was independent with supine to sit and scooting to edge of the bed.) - Transfers Independent (The patient was independent with sit to and from stand transfer.) - Balance Balance Sitting: Good Balance Standing: Good (The patient was able to stand without support. The patient did exhibit a decreased posterior balance reaction.) - Gait Detail (The patient ambulated without device with O2 13 feet x 1 with supervision for safety only. The patient exhibited minimal shortness of breath with ambulation.) Therapy Assessment - Therapy Assessment Detail (The patient is independent with mobility and supervision for safety only with ambulation. The patient's strength is functional with minimal weakness in R hip musculature (4/5). The patient's balance is good except for delayed posterior balance reaction. Feel the patient does not require ongoing PT at this time due to independence with mobility and ambulation. Due to overall feeling of weakness with activity supervision of family when patient ambulates is recommended when patient is discharged from [facility] the first 24 to 48 hours.) Problem List - Problem List Physical Therapy Problem List: Detail (1) Overall decreased ability to complete sustained physical activity due to COPD 2) Minimal decreased R hip weakness. 3) Delayed posterior balance reaction.) Goals - Goals Physical Therapy Goals: The patient is independent with ambulation and bed mobility. The patient is to continue with ambulation at home as tolerated and pursed lip breathing techniques. Plan - Plan Physical Therapy Plan: The patient does not require inpatient PT at this time due to independence with mobility.
[2017-08-28] MEDS: AZITHROMYCIN 500 MG in 0.9 % SODIUM CHLORIDE 250ML 250 ML IVPB SCH (12:06)
[2017-08-28] MEDS: PREDNISONE 20 MG TAB PO SCH (17:50)
[2017-08-28] MEDS: ATORVASTATIN 20 MG TABLET PO SCH (22:09)
[2017-08-29] MEDS: BENZONATATE 100 MG CAPSULE PO PRN (03:40)
[2017-08-29] MEDS: IPRATROPIUM/ALBUTEROL (0.5MG/3MG) NEB INH SCH ×4 (04:56→13:52)
[2017-08-29 07:06] LABS: PROTHROMBIN TIME (PATIENT) 88.9 SECONDS (9.5-12.1)
[2017-08-29 07:07] LABS: INR 8.06
[2017-08-29] MEDS ORDERED: PHYTONADIONE 10 MG/ML AMPUL PO ONE (08:05)
[2017-08-29] MEDS: ACETAMINOPHEN 500 MG TABLET PO PRN (08:24)
[2017-08-29] MEDS: PREDNISONE 20 MG TAB PO SCH (09:22)
[2017-08-29] MEDS: FORMOTEROL FUMARATE INH SCH (10:04)
[2017-08-29] MEDS: BUDESONIDE INH SCH (10:04)
[2017-08-29] MEDS: CEFTRIAXONE SODIUM 1 GM in 0.9 % SODIUM CHLORIDE 100ML 100 ML IVPB SCH (10:52)
--- NOTE | 2017-08-29 11:46 | Discharge Note ---
VTE H&P Assessment - Risk for VTE Risk for VTE: No Risk Level: Moderate Risk Assessment Date: 08/27/17 Risk Assessment Time: 13:00 VTE Orders Placed or Will Be Placed: Yes VTE Reason for No Prophylaxis: Complication of Medical Care (on coumadin and levels high , no further treatment till levels come down) Discharge Medications - Discharge Medications Prescriptions: Azithromycin [Zithromax] 500 mg PO DAILY #7 tablet Cephalexin [Keflex] 500 mg PO QID #40 cap Prednisone [Prednisone 20Mg] 20 mg PO BIDWM #10 tab Home Medications: Ambulatory Orders Albuterol Sulfate [Ventolin Hfa] 1 - 2 puff IH Q4-6HR #1 inhaler 06/15/17 [Last Taken Unknown] Atorvastatin Calcium 20 mg PO QHS 06/15/17 [Last Taken Unknown] Acetaminophen [Tylenol 500Mg Tab] 1,000 mg PO Q8H PRN tablet 06/18/17 [Last Taken Unknown] Albuterol Sulfate 0.083% [Neb] 3 ml NEB .EVERY 4-6 HOURS PRN 08/27/17 [Last Taken Unknown] Budesonide/Formoterol Fumarate [Symbicort 80-4.5 Mcg Inhaler] 2 puff INH BID 12/09 [Last Taken Unknown] Albuterol Sulfate 0.083% [Neb] 2.5 mg INH .EVERY 4-6 HOURS #120 nebulization solution 08/29/17 [Last Taken Unknown] Azithromycin [Zithromax] 500 mg PO DAILY #7 tablet 08/29/17 [Last Taken Unknown] Benzonatate [Tessalon Perles] 100 mg PO TID PRN capsule 08/29/17 [Last Taken Unknown] Cephalexin [Keflex] 500 mg PO QID #40 cap 08/29/17 [Last Taken Unknown] Prednisone [Prednisone 20Mg] 20 mg PO BIDWM #10 tab 08/29/17 [Last Taken Unknown ] Discharge Note - Date Date of Discharge Note: 08/29/17 Disposition: Home, Self-Care Condition: (2) Stable Additional Instructions: follow up with Dr. Ortiz on Thursday at 11 am oxygen 3 liters per minute stay off coumadin till seen in office by Dr. Ortiz prednisone 20 mg bid for five days Forms: Patient Portal Access
[2017-08-29] MEDS: AZITHROMYCIN 500 MG in 0.9 % SODIUM CHLORIDE 250ML 250 ML IVPB SCH (13:32)
--- NOTE | 2017-08-31 13:10 | Discharge Summary ---
DATE: 08/29/2017 DISCHARGE DIAGNOSES: 1. Pneumonia, left lower lobe. 2. COPD exacerbation. 3. Hypoxia on home oxygen at 2L/min nasal cannula. We will send her home on 3L/min nasal cannula. 4. She is on Coumadin therapy secondary to a history of DVT of the legs but we are holding the Coumadin because her PT/INR was high when she came in and remained high because of her azithromycin treatment. 5. History of hypercholesterolemia. 6. History of bronchiectasis of her lungs. ATTENDING PHYSICIAN: Shukri Ortiz DO REASON FOR HOSPITALIZATION: Dyspnea, cough progressively worse over 3-4 days. This 81-year-old female presented to the emergency department. Started to get run down on . She is normally short of breath because of her lung disease and is on home oxygen but is much worse in the last 3-4 days. She has a bad cough, dry mouth, and nausea. She was evaluated in the emergency department by Dr. Ayala, admitted to the hospital for pneumonia, COPD exacerbation. She also has diastolic heart failure which is chronic, and she had a normal echocardiogram done this year. She is on Coumadin because of a history of DVT of the right leg. SIGNIFICANT FINDINGS: Chest x-ray with atelectasis and infiltrate in the left lower lobe. The initial white count was 17,600, dropped down to 13,200. Hemoglobin on discharge 9.7. Cardiac enzymes were normal. Her PT/INR when she came in was 5.51, moved up to 8.06. However, the Coumadin has been held throughout the whole time and it is up because of azithromycin use IV. Influenza A and B were negative. Brain natriuretic peptide is 2435. BUN is 21, creatinine 0.6. THERAPY PROVIDED: The patient was given IV Rocephin 1 g q.12 h., Solu-Medrol 80 mg q.8 h. and initially in the emergency department 125 mg IV. Switched over to oral prednisone 20 mg twice a day and she was also given azithromycin 500 mg a day. Cautious IV hydration. She is feeling much better on the day of discharge. DISCHARGE INSTRUCTIONS: Follow up with Dr. Ortiz on Thursday at 11 a.m. Off Coumadin until Thursday. Oxygen 3L/min nasal cannula. Keflex 500 mg q.i.d. Azithromycin 500 mg a day. Prednisone 20 mg a day b.i.d. for 5 days. Symbicort 160/4.5 two puffs q.i.d. Albuterol nebulizations q.4 h. Continue her home medications of atorvastatin 20 mg a day. Stop the Lasix. Stop the potassium. MTDD
== END 2017-08-29 15:27 | disposition home or self-care (01) | DRG 194 ==
LOC: ER 09:20 → MEDSURG 11:52
PROVIDERS: ADMIT Emergency Medicine; ATTEND Emergency Medicine
DX: J18.9 Pneumonia, unspecified organism (principal); J44.1 Chronic obstructive pulmonary disease with (acute) exacerbation; I50.30 Unspecified diastolic (congestive) heart failure; Z86.718 Personal history of other venous thrombosis and embolism; Z79.01 Long term (current) use of anticoagulants; E78.00 Pure hypercholesterolemia, unspecified
CPT/HCPCS: 71020; 80048; 82550; 82553; 83880; 84484; 85027; 85610; 85730; 87400; 93005; 93010; 94640; 94761; 94762; 96374; 96375; 99285; J0456; J1940; J2930; J7050; J7512

== ENCOUNTER 2018-04-22 14:45 | Emergency (ER) | payer MEDICARE, OTHER ==
[2018-04-22] MEDS ORDERED: IPRATROPIUM/ALBUTEROL (0.5MG/3MG) NEB INH ONE (15:04)
--- NOTE | 2018-04-22 15:08 | Emergency Department Record ---
History of Present Illness - General Chief complaint: Weakness Stated complaint: WEAK AND NOT HER SELF Time Seen by Provider: 04/22/18 14:48 Source: Patient, Family Mode of Arrival: Wheelchair Limitations: No limitations - History of Present Illness Initial comments: 82 yo female presents with her son. She has a history of COPD, Pulmonary Fibrosis, DVT, Pneumonia, home oxygen normally on 3 LNC. She and her son state that last night they began to notice she is generally very weak all over. She states she is not in pain. She also states she is always short of breath. Her baseline is that she can get up and dress herself. She is able to use a walker to ambulate where she needs to go. She was too weak and tired to perform either of these baseline tasks. No confusion but she is tired compared to normal. No fever. Her cough is productive. No vomiting or diarrhea. She has chronic leg edema that she and her son agree is at baseline. PCP is Dr Ortiz. Dr Rodríguez is her pulmonary doctor. MD Complaint: Generalized weakness -: Unknown Location: Generalized Improves with: None Worsens with: None Associated Symptoms: Shortness of breath - Kush Coma Scale Eye Response: (4) Open spontaneously Motor Response: (6) Obeys commands Verbal Response: (5) Oriented Kush Total: 15 - Related Data Home Medications Medication Instructions Recorded Confirmed Last Taken Azithromycin [Zithromax] 250 mg PO DAILY 04/22/18 04/22/18 Unknown Cholecalciferol (Vitamin D3) 1,000 unit PO DAILY 04/22/18 04/22/18 Unknown [Vitamin D3] Furosemide 40 mg PO DAILY 04/22/18 04/22/18 Unknown Nintedanib Esylate [Ofev] 150 mg PO BID 04/22/18 04/22/18 04/22/18 Ondansetron [Zofran Odt] 4 mg PO DAILY 04/22/18 04/22/18 Unknown Potassium Chloride 10 meq PO DAILY 04/22/18 04/22/18 Unknown Warfarin Sodium 2.5 mg PO DAILY 04/22/18 04/22/18 Unknown Previous Rx's Medication Instructions Recorded Albuterol Sulfate 0.083% [Neb] 2.5 mg INH .EVERY 4-6 HOURS #120 08/29/17 nebulization solution Benzonatate [Tessalon Perles] 100 mg PO TID PRN capsule 08/29/17 Allergies Allergy/AdvReac Type Severity Reaction Status Date / Time No Known Drug Allergies Allergy Verified 04/22/18 14:55 Travel Screening - Travel/Exposure Within Last 30 Days Have you traveled within the last 30 days?: No Review of Systems Constitutional: Reports: Malaise, Weakness. Denies: Chills, Fever Eyes: Denies: Eye discharge, Eye pain ENT: Reports: Congestion Respiratory: Reports: Cough, Dyspnea, Wheezes Cardiovascular: Denies: Chest pain, Palpitations, Syncope Endocrine: Reports: Fatigue Gastrointestinal: Denies: Abdominal pain, Diarrhea, Nausea, Vomiting Genitourinary: Denies: Dysuria, Urgency Musculoskeletal: Denies: Arthralgia, Back pain, Joint swelling, Myalgia Skin: Denies: Bruising, Change in color, Rash Neurological: Denies: Confusion (No confusion. She is more tired, sleeping longer), Headache Psychiatric: Denies: Anxiety, Auditory hallucinations, Visual hallucinations Hematological/Lymphatic: Reports: As per HPI, Blood Clots. Denies: Easy bleeding, Easy bruising, Swollen glands Past Medical History - SOCIAL HISTORY Smoking Status: Never smoker Alcohol Use: None Drug Use: None - RESPIRATORY Hx Respiratory Disorders: Yes Hx Bronchitis: Yes Hx COPD: Yes Hx Pneumonia: Yes Comment:: chronic cough, wears 3L all times - CARDIOVASCULAR Hx Cardio Disorders: Yes Hx Deep Vein Thrombosis: Yes Comment:: high cholesterol - NEURO Hx Neuro Disorders: No - GI Hx GI Disorders: No - Hx Genitourinary Disorders: No - ENDOCRINE Hx Endocrine Disorders: No - MUSCULOSKELETAL Hx Musculoskeletal Disorders: No - PSYCH Hx Psych Problems: No - HEMATOLOGY/ONCOLOGY Hx Hematology/Oncology Disorders: No Family Medical History Any Significant Family History?: Yes Hx Heart Disease: Father, Mother Physical Exam - General General Appearance: Alert, Oriented x3, Cooperative, Other (She is awake, appears somewhat fatigued, answers questions appropriately) - Head Head exam: Atraumatic, Normocephalic, Normal inspection - Eye Eye exam: Normal appearance. negative: Conjunctival injection - ENT ENT exam: Normal exam, Mucous membranes moist, Normal orophraynx Ear exam: Normal external inspection Nasal Exam: Normal inspection Mouth exam: Normal external inspection - Neck Neck exam: Normal inspection, Full ROM. negative: Tenderness - Respiratory Respiratory exam: Accessory muscle use, Decreased breath sounds, Prolonged expiratory, Rhonchi, Wheezes. negative: Normal lung sounds bilaterally, Chest wall tenderness, Respiratory distress - Cardiovascular Cardiovascular Exam: Regular rate, Normal rhythm, Normal heart sounds - GI/Abdominal GI/Abdominal exam: Soft. negative: Tenderness - Rectal Rectal exam: Deferred - exam: Deferred - Extremities Extremities exam: Pedal edema (bilateral) - Back Back exam: Denies: CVA tenderness (R), CVA tenderness (L) - Neurological Neurological exam: Alert, Oriented X3. negative: Altered, Motor sensory deficit - Psychiatric Psychiatric exam: Depressed. negative: Agitated, Anxious, Normal affect, Normal mood - Skin Skin exam: Cyanosis (lips), Dry, Intact, Normal color, Warm. negative: Diaphoretic, Erythema Course Vital Signs 04/22/18 14:51 Temperature 97.8 F Pulse Rate 93 H Respiratory 22 Rate Blood Pressure 102/88 Pulse Ox 87 L - Reevaluation(s) Reevaluation #1: DC Summary reviewed from 08/27/17. LLL Pneumia, COPD,Hypoxia 04/22/18 15:09 04/22/18 15:25 EKG EKG #1: 1518 Rate: 91 Rhythm: sinus [place]: normal Intervals: normal ST segments: NS diffuse changes Prior: 04/22/18 15:29 ABG pH 7.26 pCO2 98.5 pO2 67 90% saturation on 3LNC 04/22/18 15:57 CXR consistent with chronic reticulonodular changes, similar to prior CXR 04/22/18 16:05 The patient is DNR at this time. NO intubation, chest compression or defibrillation. 04/22/18 16:21 Tolerating BiPap waiting for labs 04/22/18 16:29 The CBC was reviewed No acute changes 04/22/18 16:46 The CMP reviewed The Troponin is normal Given her ABG, end stage COPD, pulmonary fibrosis with her space and [facility] operations at [facility] the recommendation is for transfer on biPap to [facility] was contacted. 04/22/18 16:48 04/22/18 17:19 Room assigned at [facility]. Patient is stable for transfer. Medical Decision Making - Lab Data Result diagrams: 04/22/18 16:07 04/22/18 16:07 Disposition Disposition: Transfer Clinical Impression: COPD exacerbation, Acute respiratory failure, Hypoxia Disposition: Acute Care Hospital Transfer Transfer To: [facility] Reason For Transfer: Acute Respiratory Failure Accepting Physician: Oscar Time Discussed w/Accepting Physician: 16:54 Condition: (2) Stable Forms: Patient Portal Access Time of Disposition: 16:54 Quality - Quality Measures Quality Measures: N/A - Blood Pressure Screening Does Patient Have Any of the Following: No Blood Pressure Classification: Pre-Hypertensive BP Reading Systolic Measurement: 102 Diastolic Measurement: 88 Screening for High Blood Pressure: < Pre-Hypertensive BP, F/U Documented > [ G8950] Pre-Hypertensive Follow-up Interventions: Referral to alternative/primary care provider.
[2018-04-22] MEDS ORDERED: METHYLPREDNISOLONE PF 125MG/VIAL IVP ONE (15:10)
[2018-04-22 15:24] LABS: ARTERIAL BLD GAS O2 SATURATION 90.9 % (95-98); ARTERIAL BLOOD GAS BASE EXCESS 12.2 mmol/L (-2 - 3); ARTERIAL BLOOD GAS HCO3 42.3 mmol/L (18-23); ARTERIAL BLOOD GAS pH 7.26 (7.35-7.45); CARBOXYHEMOGLOBIN 1.8 % (0-1.5); METHEMOGLOBIN 0.1 % (0.0-1.5); O2 HEMOGLOBIN 89.1 % vol (94-99); TOTAL HEMOGLOBIN 10.9 g/dl (11.6-16)
[2018-04-22 15:25] LABS: ARTERIAL BLOOD GAS PCO2 98.5 mmHg (35-48)
[2018-04-22] MEDS ORDERED: CEFTRIAXONE SODIUM 1 GM in 0.9 % SODIUM CHLORIDE 100ML 100 ML IVPB ONE (15:54)
[2018-04-22 16:23] LABS: BASO % 0.3 % (0-6); GRAN % 79.7 % (47-80); HEMATOCRIT 38.8 % (35.0-47.0); HEMOGLOBIN 11.9 gm/dl (11.6-16.0); MEAN CORPUSCULAR HEMOGLOBIN 31.9 pg (27-33); MEAN CORPUSCULAR HGB CONC 30.7 g/dl (32-36); MEAN PLATELET VOLUME 10.6 fl (7.4-10.4); PLATELET COUNT 234 K/uL (130-400); RED BLOOD COUNT 3.73 M/uL (3.80-5.40); RED CELL DISTRIBUTION WIDTH 16.6 % (11.5-14.5); WHITE BLOOD COUNT W/O DIFF 7.4 K/uL (4.2-12.2)
[2018-04-22 16:32] LABS: BLOOD UREA NITROGEN 16 mg/dL (8-23); CREATININE 0.4 mg/dL (0.5-0.9); EST GLOMERULAR FILTRATION RATE > 60 mL/min; TOTAL PROTEIN 7.7 g/dL (6.6-8.7)
[2018-04-22 16:34] LABS: GLUCOSE,RANDOM 117 mg/dL (74-109)
[2018-04-22 16:37] LABS: ALB/GLOB RATIO 0.7 (1.1-1.8); ALBUMIN 3.2 g/dL (4.0-5.0); ALKALINE PHOSPHATASE 176 U/L (35-104); ALT/SGPT 103 U/L (<33); AST/SGOT 127 U/L (10.0-35.0)
[2018-04-22 17:02] LABS: INR 4.6; PARTIAL THROMBOPLASTIN TIME 42.1 SECONDS (24.5-39.1); PROTHROMBIN TIME (PATIENT) 44.4 SECONDS (9.5-12.1)
[2018-04-22 17:12] LABS: THYROID STIMULATING HORMONE 2.43 uIU/mL (0.270-4.20)
[2018-04-22 19:00] LABS: URINE APPEARANCE CLEAR; URINE BILIRUBIN SMALL (NEGATIVE); URINE BLOOD TRACE-I (NEGATIVE); URINE COLOR YELLOW; URINE GLUCOSE (UA) NEGATIVE (NEGATIVE); URINE KETONE NEGATIVE (NEGATIVE); URINE LEUKOCYTE ESTERASE NEGATIVE (NEGATIVE); URINE NITRITE NEGATIVE (NEGATIVE)
[2018-04-22 19:10] LABS: URINE BACTERIA FEW; URINE EPITHELIAL CELLS 21 - 35 (FEW); URINE RBC 0 - 2 (NONE SEEN)
--- NOTE | 2018-04-25 15:17 | RADIOLOGY REPORT ---
EXAM: CHEST 1 VIEW HISTORY: GENERALIZED WEAKNESS AND MALAISE FOR TWO DAYS. CHRONIC LUNG DISEASE. TECHNIQUE: A single mobile upright view of the chest is obtained. COMPARISON: Two-view chest radiographic examination dated 08/27/2017. FINDINGS: The heart projects mildly enlarged. No definite new pulmonary venous hypertension is seen. Mixed primarily coarse reticular opacities are again noted scattered in each lung, right slightly greater than left. The majority of this likely relates to chronic fibrosis though superimposition of edema or infiltrate would be difficult to exclude. No definite new lung consolidation. The costophrenic angles again appear somewhat blunted with small pleural effusions suspected. Biapical pleural stripe thickening again noted. No new lytic or blastic bone lesion. IMPRESSION: 1. CARDIOMEGALY WITHOUT GROSS NEW PULMONARY VENOUS HYPERTENSION. 2. MIXED PRIMARILY COARSE RETICULONODULAR OPACITIES AGAIN NOTED IN EACH LUNG. THE MAJORITY OF THESE LIKELY RELATE TO FIBROSIS. THE POSSIBILITY OF MINOR SUPERIMPOSED ATELECTASIS, INFILTRATE, OR EDEMA WOULD BE DIFFICULT TO ENTIRELY EXCLUDE. NO DEFINITE NEW LUNG CONSOLIDATION. 3. SMALL BASILAR PLEURAL EFFUSIONS AGAIN SUSPECTED. BIAPICAL LUNG SCARRING. JOB NUMBER: [id number] [facility]
== END 2018-04-22 18:10 | disposition short-term general hospital (02) ==
LOC: ER 14:45
DX: J96.01 Acute respiratory failure with hypoxia (principal); J44.1 Chronic obstructive pulmonary disease with (acute) exacerbation; Z99.81 Dependence on supplemental oxygen; Z79.01 Long term (current) use of anticoagulants; Z86.718 Personal history of other venous thrombosis and embolism
CPT/HCPCS: 36600; 71045; 80053; 81001; 82375; 82803; 83880; 84443; 84484; 85025; 85610; 85730; 93005; 93010; 94640; 94660; 96365; 96366; 96375; 99285; J2930

== ENCOUNTER 2018-05-25 13:29 | Emergency (ER) | payer MEDICARE, OTHER ==
[2018-05-25] MEDS ORDERED: IPRATROPIUM/ALBUTEROL (0.5MG/3MG) NEB INH ONE (13:43)
--- NOTE | 2018-05-25 13:51 | Emergency Department Record ---
History of Present Illness - General Chief Complaint: Shortness of breath Stated Complaint: COUGHING BLOOD,FEVER Time Seen by Provider: 05/25/18 13:43 Source: Patient Mode of Arrival: EMS Limitations: No limitations - History of Present Illness Initial Comments: Pt by EMS from home with son and Grand daughter with complaint of CHARITO. Pt states the visiting RN was concerned with her lung sounds and a fever. Pt relates an episode yesterday at home where she had some mucous and extreme CHARITO. Since that coughing spell she has noted specks of blood in her sputum. Pt is on Prednisone and using nebs in the home. Anna ROBLES MD Complaint: Shortness of breath Onset/Timin -: Days(s) Severity: Moderate Severity scale (1-10): 7 (pulmonary fibrosis) Improves With: Nothing Worsens With: Nothing Known History Of: Other Associated Symptoms: Cough, Fever, Hemoptysis - Related Data Home Oxygen Therapy: Yes Home Oxygen Amount: 3 Liters Home Medications Medication Instructions Recorded Confirmed Last Taken Prednisone 10 mg PO DAILY 05/25/18 05/25/18 05/25/18 Warfarin Sodium 5 mg PO ONCE 05/25/18 05/25/18 Unknown Previous Rx's Medication Instructions Recorded Albuterol Sulfate 0.083% [Neb] 2.5 mg INH .EVERY 4-6 HOURS #120 08/29/17 nebulization solution Benzonatate [Tessalon Perles] 100 mg PO TID PRN capsule 08/29/17 Allergies Allergy/AdvReac Type Severity Reaction Status Date / Time No Known Drug Allergies Allergy Verified 05/25/18 13:40 Travel Screening - Travel/Exposure Within Last 30 Days Have you traveled within the last 30 days?: No Review of Systems Constitutional: Reports: Fever. Denies: Chills, Malaise, Weakness Eyes: Denies: Eye discharge, Eye pain ENT: Denies: Congestion, Ear pain, Epistaxis Respiratory: Reports: Cough, Dyspnea, Hemoptysis Cardiovascular: Denies: Arrhythmia, Chest pain Endocrine: Denies: Fatigue Gastrointestinal: Denies: Abdominal pain, Diarrhea, Nausea Musculoskeletal: Denies: Arthralgia Skin: Denies: Bruising Neurological: Denies: Abnormal gait, Headache, Tingling, Weakness Psychiatric: Denies: Anxiety, Suicidal thoughts Hematological/Lymphatic: Denies: Anemia Past Medical History - SOCIAL HISTORY Smoking Status: Never smoker Alcohol Use: None Drug Use: None - RESPIRATORY Hx Respiratory Disorders: Yes Hx Bronchitis: Yes Hx COPD: Yes Hx Pneumonia: Yes Comment:: chronic cough, wears 3L all times - CARDIOVASCULAR Hx Cardio Disorders: Yes Hx Deep Vein Thrombosis: Yes Comment:: high cholesterol - NEURO Hx Neuro Disorders: No - GI Hx GI Disorders: No - Hx Genitourinary Disorders: No - ENDOCRINE Hx Endocrine Disorders: No - MUSCULOSKELETAL Hx Musculoskeletal Disorders: No - PSYCH Hx Psych Problems: No - HEMATOLOGY/ONCOLOGY Hx Hematology/Oncology Disorders: No Family Medical History Any Significant Family History?: Yes Hx Heart Disease: Father, Mother Physical Exam - General General Appearance: Alert, Oriented x3, Cooperative, Mild distress Limitations: No limitations - Head Head exam: Atraumatic - Eye Eye exam: PERRL, EOMI. negative: Nystagmus - ENT ENT exam: Normal exam, Mucous membranes moist, Normal external ear exam, Normal orophraynx, TM's normal bilaterally - Neck Neck exam: Normal inspection. negative: Lymphadenopathy, Tenderness - Respiratory Respiratory exam: Decreased breath sounds, Prolonged expiratory, Respiratory distress, Rhonchi. negative: Wheezes - Cardiovascular Cardiovascular Exam: Regular rate, Normal rhythm. negative: Tachycardia Peripheral Pulses: 2+: Radial (R), Radial (L), Dorsalis Pedis (R), Dorsalis Pedis (L) - GI/Abdominal GI/Abdominal exam: Soft, Normal bowel sounds. negative: Tenderness - Extremities Extremities exam: Pedal edema (RLE swelling that is chronic per Grand Daughter) . negative: Calf tenderness, Tenderness - Back Back exam: Reports: Normal inspection - Neurological Neurological exam: Alert, Oriented X3. negative: Motor sensory deficit - Psychiatric Psychiatric exam: Normal affect. negative: Agitated, Anxious - Skin Skin exam: negative: Cyanosis, Diaphoretic, Rash Course Vital Signs 05/25/18 13:33 Temperature 97.7 F Pulse Rate 110 H Respiratory 32 H Rate Blood Pressure 114/70 Pulse Ox 88 L Procedures - EKG Initial Date: 05/25/18 Time: 13:58 EKG: Abnormal EKG EKG Detail: Sinus tach at 102. No ST elevations. Medical Decision Making - Lab Data Result diagrams: 05/25/18 13:20 05/25/18 13:20 Critical Care Time Critical Care Time: Yes (Multiple checkes and treatments/) Total Critical Care Time: 45 Disposition Disposition: Transfer Clinical Impression: Pneumothorax on right, Pulmonary fibrosis Disposition: Acute Care Hospital Transfer Transfer To: [facility] Emergency Department Reason For Transfer: Higher level of care - respiratory Accepting Physician: Dr. Bernstein - ED Time Discussed w/Accepting Physician: 15:41 Condition: (3) Guarded Forms: Patient Portal Access Quality - Quality Measures Quality Measures: N/A - Blood Pressure Screening Does Patient Have Any of the Following: Active Dx of HTN Blood Pressure Classification: Normal BP Reading Systolic Measurement: 114 Diastolic Measurement: 70 Screening for High Blood Pressure: Patient Exclusion, Hx of HTN [G9744]
[2018-05-25 13:53] LABS: HEMOGLOBIN 11.9 gm/dl (11.6-16.0); MEAN CELL VOLUME 102.6 fl (81-97); MEAN CORPUSCULAR HEMOGLOBIN 30.5 pg (27-33); MEAN CORPUSCULAR HGB CONC 29.8 g/dl (32-36); MEAN PLATELET VOLUME 9.8 fl (7.4-10.4); PLATELET COUNT 362 K/uL (130-400); RED CELL DISTRIBUTION WIDTH 15.6 % (11.5-14.5); WHITE BLOOD COUNT W/O DIFF 13.2 K/uL (4.2-12.2)
[2018-05-25 14:12] LABS: INR 1.4; PARTIAL THROMBOPLASTIN TIME 28.5 SECONDS (24.5-39.1); PROTHROMBIN TIME (PATIENT) 14.1 SECONDS (9.5-12.1)
[2018-05-25 14:27] LABS: URINE APPEARANCE CLEAR; URINE BILIRUBIN NEGATIVE (NEGATIVE); URINE BLOOD MODERATE (NEGATIVE); URINE COLOR YELLOW; URINE GLUCOSE (UA) NEGATIVE (NEGATIVE); URINE KETONE NEGATIVE (NEGATIVE); URINE LEUKOCYTE ESTERASE TRACE (NEGATIVE); URINE NITRITE NEGATIVE (NEGATIVE); URINE PROTEIN NEGATIVE (NEGATIVE); URINE UROBILINOGEN 0.2 E.U./dL (0.20 - 1.00)
[2018-05-25 14:29] LABS: BLOOD UREA NITROGEN 15 mg/dL (8-23); CREATININE 0.5 mg/dL (0.5-0.9); EST GLOMERULAR FILTRATION RATE > 60 mL/min
[2018-05-25 14:32] LABS: GLUCOSE,RANDOM 143 mg/dL (74-109)
[2018-05-25 14:36] LABS: URINE EPITHELIAL CELLS 0 - 2 (FEW); URINE RBC NONE SEEN (NONE SEEN); URINE WBC 0 - 2 (0-2/hpf)
== END 2018-05-25 16:22 | disposition short-term general hospital (02) ==
LOC: ER 13:29
DX: J93.83 Other pneumothorax (principal); J84.10 Pulmonary fibrosis, unspecified; R04.2 Hemoptysis; R06.00 Dyspnea, unspecified; J44.9 Chronic obstructive pulmonary disease, unspecified; I10 Essential (primary) hypertension; Z79.01 Long term (current) use of anticoagulants; Z86.718 Personal history of other venous thrombosis and embolism; Z99.81 Dependence on supplemental oxygen
CPT/HCPCS: 71046; 80048; 81001; 85027; 85610; 85730; 93005; 93010; 94640; 99291

== ENCOUNTER 2018-08-12 17:28 | Inpatient (IN) | payer MEDICARE, OTHER ==
[2018-08-12] MEDS ORDERED: IPRATROPIUM/ALBUTEROL (0.5MG/3MG) NEB INH ONE ×2 (17:56→18:51)
[2018-08-12] MEDS ORDERED: METHYLPREDNISOLONE PF 125MG/VIAL IVP ONE (17:56)
[2018-08-12 18:05] LABS: HEMATOCRIT 38.6 % (35.0-47.0); HEMOGLOBIN 12.2 gm/dl (11.6-16.0); MEAN CELL VOLUME 99.2 fl (81-97); MEAN CORPUSCULAR HEMOGLOBIN 31.4 pg (27-33); MEAN CORPUSCULAR HGB CONC 31.6 g/dl (32-36); MEAN PLATELET VOLUME 10.4 fl (7.4-10.4); PLATELET COUNT 280 K/uL (130-400); RED BLOOD COUNT 3.89 M/uL (3.80-5.40); RED CELL DISTRIBUTION WIDTH 14.6 % (11.5-14.5)
--- NOTE | 2018-08-12 18:08 | Emergency Department Record ---
History of Present Illness - General Chief Complaint: Shortness of breath Stated Complaint: TROUBLE BREATHING Time Seen by Provider: 08/12/18 17:47 Source: Patient, Family Mode of Arrival: Wheelchair Limitations: No limitations - History of Present Illness Initial Comments: The patient is here due to worsening of her chronic SOB for 2-3 days. She has had a mild worsening of her cough but denies any CP, sputum production, fever, chills, or back pain. She has had mild shoulder pain bilaterally. The patient has a hx of end stage pulmonary fibrosis and is on chronic home O2 3L NC at all times. She recently has been treated for a R PTX and had a chest tube and thoracentesis 2 months ago at [facility]. The patient does have a lung doctor named Dr. Rodríguez at [facility]. Complaint: Cough, Shortness of breath Onset/Timin -: Days(s) Radiation: Other Severity: Mild Severity scale (1-10): 4 Quality: Aching Consistency: Constant Improves With: Nothing Worsens With: Nothing Associated Symptoms: Cough Treatments Prior to Arrival: Oxygen - Related Data Home Oxygen Therapy: Yes Home Oxygen Amount: 3 Liters Previous Rx's Medication Instructions Recorded Albuterol Sulfate 0.083% [Neb] 2.5 mg INH .EVERY 4-6 HOURS #120 08/29/17 [Albuterol Sulfate] nebulization solution Benzonatate [Tessalon Perles] 100 mg PO TID PRN capsule 08/29/17 Allergies Allergy/AdvReac Type Severity Reaction Status Date / Time No Known Drug Allergies Allergy Verified 08/12/18 17:33 Travel Screening - Travel/Exposure Within Last 30 Days Have you traveled within the last 30 days?: No Review of Systems Constitutional: Reports: Malaise. Denies: Chills, Fever Eyes: Denies: Eye discharge ENT: Reports: Congestion Respiratory: Reports: Cough, Dyspnea. Denies: Hemoptysis Cardiovascular: Denies: Arrhythmia, Chest pain Endocrine: Reports: Fatigue Gastrointestinal: Denies: Abdominal pain Genitourinary: Denies: Dysuria Musculoskeletal: Denies: Arthralgia Skin: Denies: Bruising Past Medical History - SOCIAL HISTORY Smoking Status: Never smoker Alcohol Use: None Drug Use: None - RESPIRATORY Hx Respiratory Disorders: Yes Hx Bronchitis: Yes Hx COPD: Yes Hx Pneumonia: Yes Comment:: chronic cough, wears 3L all times - CARDIOVASCULAR Hx Cardio Disorders: Yes Hx Deep Vein Thrombosis: Yes Comment:: high cholesterol - NEURO Hx Neuro Disorders: No - GI Hx GI Disorders: No - Hx Genitourinary Disorders: No - ENDOCRINE Hx Endocrine Disorders: No - MUSCULOSKELETAL Hx Musculoskeletal Disorders: No - PSYCH Hx Psych Problems: No - HEMATOLOGY/ONCOLOGY Hx Hematology/Oncology Disorders: No Family Medical History Any Significant Family History?: Yes Hx Heart Disease: Father, Mother Physical Exam - General General Appearance: Alert, Oriented x3, Cooperative, Mild distress - Head Head exam: Atraumatic, Normocephalic, Normal inspection - ENT Throat exam: Normal inspection. negative: Tonsillar erythema, Tonsillar exudate - Neck Neck exam: Normal inspection, Full ROM. negative: Tenderness - Respiratory Respiratory exam: Respiratory distress (very mild but with no retractions.), Rhonchi. negative: Normal lung sounds bilaterally, Accessory muscle use, Decreased breath sounds, Prolonged expiratory, Stridor, Wheezes - Cardiovascular Cardiovascular Exam: Regular rate, Normal rhythm, Normal heart sounds - GI/Abdominal GI/Abdominal exam: Soft, Normal bowel sounds. negative: Tenderness - Extremities Extremities exam: Normal inspection, Full ROM, Normal capillary refill. negative: Tenderness - Back Back exam: Reports: Normal inspection - Neurological Neurological exam: Alert, Normal gait. negative: Abnormal gait, Motor sensory deficit - Psychiatric Psychiatric exam: negative: Anxious Course Vital Signs 08/12/18 17:34 Temperature 97.3 F L Pulse Rate 105 H Respiratory 28 H Rate Blood Pressure 92/67 Pulse Ox 88 L - Reevaluation(s) Reevaluation #1: The patient is doing a lot better at this time. Her breathing is much improved and her O2 sats are at 94% on 5L O2. The patient is much more comfortable and relaxed and is speaking in full sentences. I did discuss the plan with her and did recommend hospital admission and the patient did agree. I also did discuss the case with Dr. Wyman and he does accept the admission. 08/12/18 18:53 Reevaluation #2: I did discuss the patient's advanced directives with her and her son. The patient is to be a DNR with no Intubation, CPR or Defib. 08/12/18 19:01 Medical Decision Making - Data Complexity MDM Data: Labs Ordered and/or Reviewed, X-Ray Ordered and/or Reviewed, EKG Ordered and/or Reviewed - Lab Data Result diagrams: 08/12/18 17:40 08/12/18 17:40 - EKG Data -: EKG Interpreted by Me EKG: No Acute Changes (NSR at 96, Flipped T waves inferior and anterior leads. No significant change from old except for lead V5. ) - Radiology Data Radiology results: Report reviewed (CXR: Extensive Pulm fibrosis, no PTX. Possible slight R pleural effusion. ) Disposition Disposition: Admit Clinical Impression: COPD exacerbation, Pulmonary fibrosis Disposition: Still a Patient at [facility] Decision to Admit: Admit from ER Decision to Admit Date: 08/12/18 Decision to Admit Time: 18:55 Accepting Physician: Zamzam Rodriguez Discussed w/Accepting Physician: 18:55 Condition: (2) Stable Forms: Patient Portal Access Time of Disposition: 18:55 Quality - Quality Measures Quality Measures: N/A - Blood Pressure Screening View Details: Yes Does Patient Have Any of the Following: No Blood Pressure Classification: Normal BP Reading Systolic Measurement: 92 Diastolic Measurement: 67 Screening for High Blood Pressure: < Normal BP, F/U Not Required > [G8783]
[2018-08-12 18:14] LABS: BLOOD UREA NITROGEN 21 mg/dL (8-23); CREATININE 0.7 mg/dL (0.5-0.9); EST GLOMERULAR FILTRATION RATE > 60 mL/min
[2018-08-12 18:16] LABS: GLUCOSE,RANDOM 140 mg/dL (74-109)
[2018-08-12 18:18] LABS: INR 2.5; PARTIAL THROMBOPLASTIN TIME 31.7 SECONDS (24.5-39.1); PROTHROMBIN TIME (PATIENT) 24.6 SECONDS (9.5-12.1)
[2018-08-12 18:20] LABS: ARTERIAL BLD GAS O2 SATURATION 88.2 % (95-98); ARTERIAL BLOOD GAS BASE EXCESS 6.7 mmol/L (-2 - 3); ARTERIAL BLOOD GAS HCO3 30.7 mmol/L (18-23); ARTERIAL BLOOD GAS PCO2 42.4 mmHg (35-48); ARTERIAL BLOOD GAS pH 7.47 (7.35-7.45); METHEMOGLOBIN 0.2 % (0.0-1.5); O2 HEMOGLOBIN 86.3 % vol (94-99); TOTAL HEMOGLOBIN 11.3 g/dl (11.6-16)
[2018-08-12 18:23] LABS: ALLEN TEST PASS
[2018-08-12] MEDS ORDERED: FUROSEMIDE IV 20MG/2ML VIAL IVP ONE (18:35)
[2018-08-12] MEDS ORDERED: ACETAMINOPHEN 325 MG TAB PO PRN (20:58)
[2018-08-12] MEDS ORDERED: ATORVASTATIN 20 MG TABLET PO SCH (22:00)
[2018-08-12] MEDS ORDERED: NINTEDANIB ESYLATE 100 MG PO SCH (22:00)
[2018-08-12] MEDS ORDERED: WARFARIN 2.5 MG TAB PO SCH (22:20)
[2018-08-12] MEDS: BENZONATATE 100 MG CAPSULE PO PRN (22:22)
[2018-08-12] MEDS: IPRATROPIUM/ALBUTEROL (0.5MG/3MG) NEB INH SCH (23:27)
[2018-08-13] MEDS: BENZONATATE 100 MG CAPSULE PO PRN ×2 (04:03→07:02)
--- NOTE | 2018-08-13 05:43 | RADIOLOGY REPORT ---
EXAM: CHEST, TWO VIEWS HISTORY: COUGH, WORSE TIME BREATHING OVER THE LAST TWO DAYS. TECHNIQUE: PA and lateral views of the chest were obtained. Comparison: Two view chest 05/25/18. FINDINGS: The previously seen right sided pneumothorax is no longer apparent. Extensive diffuse interstitial infiltrate again seen. This is in the distribution very similar to that seen previously and may therefore all represent chronic fibrosis with no definite superimposed acute infiltrate seen given the relatively stable appearance with the prior study. There does appear to be slight increase in blunting of the right lateral costophrenic angle, however, which may represent slight increase in pleural effusion at the right base. Prominent apical pleural thickening bilaterally. Thoracic curve to the right. IMPRESSION: 1. APPARENT EXTENSIVE DIFFUSE BILATERAL INTERSTITIAL INFILTRATE PRESUMABLY EXTENSIVE FIBROSIS. THE DISTRIBUTION AND AMOUNT APPEARS ESSENTIALLY UNCHANGED FROM 05/25/18. 2. PROMINENT APICAL PLEURAL THICKENING BILATERALLY WITH THE PREVIOUSLY SEEN RIGHT APICAL PNEUMOTHORAX NO LONGER APPARENT. 3. SLIGHT INCREASE, HOWEVER, IN APPARENT PLEURAL OPACITY IN THE RIGHT BASE LIKELY REPRESENTING MILD INCREASE IN RIGHT PLEURAL EFFUSION. JOB NUMBER: [id number] [facility]
[2018-08-13] MEDS: IPRATROPIUM/ALBUTEROL (0.5MG/3MG) NEB INH SCH ×4 (06:09→18:02)
--- NOTE | 2018-08-13 09:53 | History & Physical ---
History of Present Illness - Date of Service Date of Service for History & Physical: 08/13/18 - History of Present Illness Admitting Diagnosis: 1. COPD Exacerbation with Pulmonary Fibrosis History of Present Illness: Mrs. Evans is a 82 y/o female with history of pulmonary fibrosis who presents with a 3 day history of worsening cough and shortness of breath as a result. The patient says that she usually has a dry cough but she would take her medication and this would resolve it. She says that despite using her cough medication she continued to cough and she also began feeling short of breath. The patient is normally on 3 liters nasal cannula oxygen but says that she had to increase it over the past few days. The patient denies fever, chills or increase in sputum production. She as recent as 2 months ago seen at [facility] for respiratory distress and was found to have a pneumothorax requiring chest tune placement. The patient has home nursing care and her primary care doctor is Dr. Shukri Ortiz. On arrival to the ED the patient had significant decline in saturation and required increased amount of oxygen. She was started on IV solumderol and respiratory therapy every 2 hours. The patient's oxygen requirement since admission has reduced and her coughing has subsided since being on additional antitussives. Travel Screening - Travel/Exposure Within Last 30 Days Have you traveled within the last 30 days?: No - Travel/Exposure Within Last Year Have you traveled outside the [place] in the last year?: No - Additonal Travel Details Have you been exposed to anyone with a communicable illness?: No - Travel Symptoms Symptom Screening: None Review of Systems Constitutional: Reports: Malaise. Denies: Chills, Fever Eyes: Denies: Eye discharge ENT: Reports: Congestion Respiratory: Reports: Cough, Dyspnea. Denies: Hemoptysis Cardiovascular: Denies: Arrhythmia, Chest pain Endocrine: Reports: Fatigue Gastrointestinal: Denies: Abdominal pain Genitourinary: Denies: Dysuria Musculoskeletal: Denies: Arthralgia Skin: Denies: Bruising Past Medical History - SOCIAL HISTORY Smoking Status: Never smoker Alcohol Use: None Drug Use: None - RESPIRATORY Hx Respiratory Disorders: Yes Hx Bronchitis: Yes Hx COPD: Yes Hx Pneumonia: Yes Comment:: pulmonary fibrosis, chronic cough, wears 3L nasal cannula all times - CARDIOVASCULAR Hx Cardio Disorders: Yes Hx Deep Vein Thrombosis: Yes Comment:: high cholesterol - NEURO Hx Neuro Disorders: No - GI Hx GI Disorders: No - Hx Genitourinary Disorders: No - ENDOCRINE Hx Endocrine Disorders: No - MUSCULOSKELETAL Hx Musculoskeletal Disorders: No - PSYCH Hx Psych Problems: No - HEMATOLOGY/ONCOLOGY Hx Hematology/Oncology Disorders: No Family Medical History Any Significant Family History?: Yes Hx Heart Disease: Father, Mother H&P Meds/Allergies - Allergies Allergies: Allergies Allergy/AdvReac Type Severity Reaction Status Date / Time No Known Drug Allergies Allergy Verified 08/12/18 17:33 - Home Medications Previous Rx's Medication Instructions Recorded Albuterol Sulfate 0.083% [Neb] 2.5 mg INH .EVERY 4-6 HOURS #120 08/29/17 [Albuterol Sulfate] nebulization solution Benzonatate [Tessalon Perles] 100 mg PO TID PRN capsule 08/29/17 - Active Medications Active Medications: Current Medications Acetaminophen (Tylenol 325mg) 650 mg PO Q6H PRN PRN Reason: PAIN - MILD(1-4)/FEVER Albuterol/Ipratropium (Duoneb) 3 ml INH RESP.Q4H.[facility] Last Admin: 08/13/18 06:09 Dose: 3 ml Atorvastatin Calcium (Lipitor) 20 mg PO QHS [facility] Last Admin: 08/12/18 22:13 Dose: 20 mg Benzonatate (Tessalon) 100 mg PO TID PRN PRN Reason: COUGH Last Admin: 08/13/18 07:02 Dose: 100 mg Furosemide (Lasix Iv) 20 mg IVP BIDDIUR [facility] Methylprednisolone Sodium Succinate (Solu-Medrol) 60 mg IVP DAILY [facility] Potassium Chloride (Klor-Con) 20 meq PO DAILY [facility] Warfarin Sodium (Coumadin) 2.5 mg PO 2200 [facility] Last Admin: 08/12/18 22:22 Dose: 2.5 mg Physical Exam - Vital Signs Vital Signs: Vital Signs - Last 24 Hrs Temp Pulse Pulse Pulse Resp BP BP 08/13/18 07:49 97.3 F L 98 H 18 126/68 08/13/18 07:34 91 H 28 H 08/13/18 06:09 80 20 08/13/18 05:00 97.5 F L 85 17 107/62 08/12/18 23:28 95 H 28 H 08/12/18 21:19 106 H 28 H 89/56 08/12/18 21:05 08/12/18 20:55 104 H 16 82/51 08/12/18 20:01 100 H 18 94/56 08/12/18 19:10 95 H 28 H 85/56 18 18:53 93 H 24 08/12/18 18:46 93 H 28 H 95/64 08/12/18 18:20 101 H 28 H 08/12/18 18:16 102 H 28 H 08/12/18 17:34 97.3 F L 105 H 28 H 92/67 Pulse Ox 08/13/18 07:49 93 L 08/13/18 07:34 92 L 08/13/18 06:09 99 08/13/18 05:00 98 08/12/18 23:28 08/12/18 21:19 92 L 08/12/18 21:05 93 L 08/12/18 20:55 90 L 08/12/18 20:01 92 L 08/12/18 19:10 92 L 08/12/18 18:53 94 L 08/12/18 18:46 94 L 08/12/18 18:20 92 L 08/12/18 18:16 90 L 08/12/18 17:34 88 L - General General Appearance: Alert, Oriented x3, Cooperative, Mild distress Limitations: No limitations - Head Head exam: Atraumatic, Normocephalic, Normal inspection - ENT Throat exam: Normal inspection. negative: Tonsillar erythema, Tonsillar exudate - Neck Neck exam: Normal inspection, Full ROM. negative: Tenderness - Respiratory Respiratory exam: Respiratory distress (very mild but with no retractions.), Rhonchi. negative: Normal lung sounds bilaterally, Accessory muscle use, Decreased breath sounds, Prolonged expiratory, Stridor, Wheezes - Cardiovascular Cardiovascular Exam: Regular rate, Normal rhythm, Normal heart sounds - GI/Abdominal GI/Abdominal exam: Soft, Normal bowel sounds. negative: Tenderness - Extremities Extremities exam: Normal inspection, Full ROM, Normal capillary refill. negative: Tenderness - Back Back exam: Reports: Normal inspection - Neurological Neurological exam: Alert, Normal gait. negative: Abnormal gait, Motor sensory deficit - Psychiatric Psychiatric exam: negative: Anxious Results - Labs Result Diagrams: 08/12/18 17:40 08/12/18 17:40 Labs Last 24 Hours: Laboratory Results - last 24 hr 08/12/18 08/12/18 08/12/18 17:40 17:40 17:40 WBC 10.0 RBC 3.89 Hgb 12.2 Hct 38.6 MCV 99.2 H MCH 31.4 MCHC 31.6 L RDW 14.6 H Plt Count 280 MPV 10.4 Neutrophils % 86.0 H Eosinophils % Not Reportable Basophils % Not Reportable Lymphocytes 9.0 L Monocytes 5.0 PT 24.6 H INR 2.5 APTT 31.7 Puncture Site pCO2 pO2 HCO3 Oxyhemoglobin ABG pH ABG O2 Saturation ABG Base Excess Kevin Test Carboxyhemoglobin Methemoglobin Total Hemoglobin Actual Respiration Rate FiO2 Sodium 142 Potassium 4.0 Chloride 97 L Carbon Dioxide 34.0 H Anion Gap 11.0 BUN 21 Creatinine 0.7 Estimated GFR > 60 Random Glucose 140 H Calcium 8.9 Troponin T < 0.010 NT-Pro-B Natriuret Pep 08/12/18 08/12/18 17:40 18:11 WBC RBC Hgb Hct MCV MCH MCHC RDW Plt Count MPV Neutrophils % Eosinophils % Basophils % Lymphocytes Monocytes PT INR APTT Puncture Site Right wrist pCO2 42.4 pO2 50.0 L HCO3 30.7 H Oxyhemoglobin 86.3 L ABG pH 7.47 H ABG O2 Saturation 88.2 L ABG Base Excess 6.7 H Kevin Test Pass Carboxyhemoglobin 2.0 H Methemoglobin 0.2 Total Hemoglobin 11.3 L Actual Respiration Rate 30.0 H FiO2 Sodium Potassium Chloride Carbon Dioxide Anion Gap BUN Creatinine Estimated GFR Random Glucose Calcium Troponin T NT-Pro-B Natriuret Pep 91945.00 H VTE H&P Assessment - Risk for VTE Risk for VTE: Yes Risk Level: High Risk Assessment Date: 08/13/18 Risk Assessment Time: 16:20 VTE Orders Placed or Will Be Placed: Yes Plan - Inpatient Certification Inpatient Certification: Admit to inpatient care: Based on my medical assessment, after consideration of patient's risk factors (age, co-morbidities and patient presenting symptoms and acuity), I expect that this patient will remain in the hospital greater than or equal to two midnights and that the services needed warrant inpatient care because: Patient Risk Factors: pulmonary fibrosis, hypoxemia Estimated length of stay: 48 hours The patient may reasonably be expected to be discharged or transferred to a hospital within 96 hours after admission to [facility]. Services needed: [] Post hospital care (if known): [] I certify that my determination is in accordance with my understanding of Medicare requirements for reasonable and necessary inpatient services. 08/13/18 16:33 - Detailed Diagnosis and Plan (1) Pulmonary fibrosis Current Visit: Yes Status: Acute Base Code: J84.10 - PULMONARY FIBROSIS, UNSPECIFIED Comment: 08/13/18: - CXR suggestive chronic fibrotic changes. No infiltrates identified. - Maintain oxygen saturations between 88-92%, currently on 6 liters. - On chronic Prednisone 5mg daily, on Solumedrol 60mg IV daily. Change to 20 mg daily x 5 days. (2) COPD exacerbation Current Visit: Yes Status: Acute Base Code: J44.1 - CHRONIC OBSTRUCTIVE PULMONARY DISEASE W (ACUTE) EXACERBATION Comment: 08/13/18: - Maintain oxygen sats 88-92 - Breo ellipta daily, Duonebs Q4H, Solumedrol 60mg QD - Tessalon perles Q3 PRN, Robitussin Q6h PRN (3) Congestive heart failure Current Visit: No Status: Acute Qualifiers: Heart failure type: diastolic Heart failure chronicity: chronic Qualified Code(s): I50.32 - Chronic diastolic (congestive) heart failure Base Code: I50.9 - HEART FAILURE, UNSPECIFIED Comment: 08/13/18: - diastolic heart failure, EKG: sinus rhythm. No changes since last EKG. - BNP 17,964, recent echo documented. BP controlled. - Lasix 20mg BID (4) Hx of deep venous thrombosis Current Visit: Yes Status: Acute Base Code: Z86.718 - PERSONAL HISTORY OF OTHER VENOUS THROMBOSIS AND EMBOLISM Comment: 08/13/18: - On Coumadin therapeutic dosing. Pharmacy to dose. (5) DVT prophylaxis Current Visit: Yes Status: Acute Base Code: [id number] - Comment: 08/13/18: - on Coumadin therapeutic dosing due to DVT hx. (6) DNR (do not resuscitate) Current Visit: Yes Status: Acute Base Code: Z66 - DO NOT RESUSCITATE Comment: 08/13/18: - pt is DNR - Disposition Poor prognosis. Patient would likely benefit from palliative care. She has home nursing and this can be discussed with her family and PCP on discharge. If she maintains sats with reduced oxygen requirements she can return home with further management with home visiting nurse.
[2018-08-13] MEDS ORDERED: BREO (FLUTICASONE/VILANTEROL) 100MCG/25MCG INHALER INH SCH (10:00)
[2018-08-13] MEDS ORDERED: ONDANSETRON 4 MG ODT TABLET PO SCH (10:00)
[2018-08-13] MEDS ORDERED: POTASSIUM CHLORIDE 10 MEQ TAB PO SCH (10:00)
[2018-08-13] MEDS ORDERED: METHYLPREDNISOLONE PF 125MG/VIAL IVP SCH (10:00)
[2018-08-13] MEDS: FUROSEMIDE IV 20MG/2ML VIAL IVP SCH ×2 (10:53→17:54)
[2018-08-13] MEDS ORDERED: GUAIFENESIN/D-METH. 10 ML UDC PO PRN (11:06)
--- NOTE | 2018-08-13 16:42 | Discharge Summary ---
Providers Discharge Summary Date: 08/13/18 Date of admission: 08/12/18 20:42 Attending physician: MEJIA GUO Primary care physician: Shukri Ortiz Physical Exam - Vital Signs Vital Signs: Vital Signs - Last 24 Hrs Temp Pulse Pulse Pulse Resp BP BP 08/13/18 14:20 104 H 26 H 08/13/18 11:46 96.8 F L 108 H 24 124/69 08/13/18 10:19 103 H 28 H 08/13/18 09:00 24 08/13/18 07:49 97.3 F L 98 H 18 126/68 08/13/18 07:34 91 H 28 H 08/13/18 06:09 80 20 08/13/18 05:00 97.5 F L 85 17 107/62 08/12/18 23:28 95 H 28 H 08/12/18 21:19 106 H 28 H 89/56 08/12/18 21:05 08/12/18 20:55 104 H 16 82/51 08/12/18 20:01 100 H 18 94/56 08/12/18 19:10 95 H 28 H 85/56 08/12/18 18:53 93 H 24 08/12/18 18:46 93 H 28 H 95/64 08/12/18 18:20 101 H 28 H 08/12/18 18:16 102 H 28 H 08/12/18 17:34 97.3 F L 105 H 28 H 92/67 Pulse Ox 08/13/18 14:20 98 08/13/18 11:46 88 L 08/13/18 10:19 93 L 08/13/18 09:00 08/13/18 07:49 93 L 08/13/18 07:34 92 L 08/13/18 06:09 99 08/13/18 05:00 98 08/12/18 23:28 08/12/18 21:19 92 L 08/12/18 21:05 93 L 08/12/18 20:55 90 L 08/12/18 20:01 92 L 08/12/18 19:10 92 L 08/12/18 18:53 94 L 08/12/18 18:46 94 L 08/12/18 18:20 92 L 08/12/18 18:16 90 L 08/12/18 17:34 88 L - General General Appearance: Alert, Oriented x3, Cooperative, Mild distress Limitations: No limitations - Head Head exam: Atraumatic, Normocephalic, Normal inspection - ENT Throat exam: Normal inspection. negative: Tonsillar erythema, Tonsillar exudate - Neck Neck exam: Normal inspection, Full ROM. negative: Tenderness - Respiratory Respiratory exam: Respiratory distress (very mild but with no retractions.), Rhonchi. negative: Normal lung sounds bilaterally, Accessory muscle use, Decreased breath sounds, Prolonged expiratory, Stridor, Wheezes - Cardiovascular Cardiovascular Exam: Regular rate, Normal rhythm, Normal heart sounds Peripheral Pulses: 3+: Radial (R), Radial (L), Dorsalis Pedis (R), Dorsalis Pedis (L) - GI/Abdominal GI/Abdominal exam: Soft, Normal bowel sounds. negative: Tenderness - Extremities Extremities exam: Normal inspection, Full ROM, Normal capillary refill. negative: Tenderness - Back Back exam: Reports: Normal inspection - Neurological Neurological exam: Alert, Normal gait. negative: Abnormal gait, Motor sensory deficit - Psychiatric Psychiatric exam: negative: Anxious Hospitalization - Hospitalization Admission Diagnosis: 1. COPD Exacerbation with Pulmonary Fibrosis - Problem List/Discharge Diagnosis (1) Pulmonary fibrosis Status: Acute Base Code: J84.10 - PULMONARY FIBROSIS, UNSPECIFIED Comment: 08/13/18: - CXR suggestive chronic fibrotic changes. No infiltrates identified. - Maintain oxygen saturations between 88-92%, currently on 6 liters. - On chronic Prednisone 5mg daily, on Solumedrol 60mg IV daily. Change to 20 mg daily x 5 days. (2) COPD exacerbation Status: Acute Base Code: J44.1 - CHRONIC OBSTRUCTIVE PULMONARY DISEASE W ( ACUTE) EXACERBATION Comment: 08/13/18: - Maintain oxygen sats 88-92 - Breo ellipta daily, Duonebs Q4H, Solumedrol 60mg QD - Tessalon perles Q3 PRN, Robitussin Q6h PRN (3) Congestive heart failure Status: Acute Discharge Diagnosis: Heart failure type: diastolic Heart failure chronicity: chronic Qualified Code(s): I50.32 - Chronic diastolic (congestive) heart failure Base Code: I50.9 - HEART FAILURE, UNSPECIFIED Comment: 08/13/18: - diastolic heart failure, EKG: sinus rhythm. No changes since last EKG. - BNP 17,964, recent echo documented. BP controlled. - Lasix 20mg BID (4) Hx of deep venous thrombosis Status: Acute Base Code: Z86.718 - PERSONAL HISTORY OF OTHER VENOUS THROMBOSIS AND EMBOLISM Comment: 08/13/18: - On Coumadin therapeutic dosing. Pharmacy to dose. (5) DVT prophylaxis Status: Acute Base Code: [id number] - Comment: 08/13/18: - on Coumadin therapeutic dosing due to DVT hx. (6) DNR (do not resuscitate) Status: Acute Base Code: Z66 - DO NOT RESUSCITATE Comment: 08/13/18: - pt is DNR - Disposition Poor prognosis. Patient would likely benefit from palliative care. She has home nursing and this can be discussed with her family and PCP on discharge. If she maintains sats with reduced oxygen requirements she can return home with further management with home visiting nurse. - Hospitalization Course Disposition: Home, Self-Care Hospital Course: Mrs. Evans is a 82 y/o female with history of pulmonary fibrosis who presents with a 3 day history of worsening cough and shortness of breath as a result. The patient says that she usually has a dry cough but she would take her medication and this would resolve it. She says that despite using her cough medication she continued to cough and she also began feeling short of breath. The patient is normally on 3 liters nasal cannula oxygen but says that she had to increase it over the past few days. The patient denies fever, chills or increase in sputum production. She as recent as 2 months ago seen at [facility] for respiratory distress and was found to have a pneumothorax requiring chest tune placement. The patient has home nursing care and her primary care doctor is Dr. Shukri Ortiz. On arrival to the ED the patient had significant decline in saturation and required increased amount of oxygen. She was started on IV solumderol and respiratory therapy every 2 hours. The patient's oxygen requirement since admission has reduced and her coughing has subsided since being on additional antitussives. Re-assessment at 4;30 pm: The patient is awake and alert. She has pursed lip breathing and is maintaining saturations in the low 90s currently on 6 liters nasal cannula. She will be discharged later this evening when her son leaves work. She and her other son were comfortable with this plan and also discussed Palliative care with Jody SW when she returns home. Procedures: Imaging and X-Rays 08/12/18 17:56 CHEST 2 VIEWS [RAD] Stat Cardiology Procedures 08/12/18 17:56 Outside Plant Field Engineer NOW EKG NOW 08/12/18 20:58 Outside Plant Field Engineer .Continuous Abnormal Labs: Abnormal Lab Results 08/12/18 08/12/18 08/12/18 Range/Units 17:40 17:40 17:40 MCV 99.2 H (81-97) fl MCHC 31.6 L (32-36) g/dl RDW 14.6 H (11.5-14.5) % Neutrophils % 86.0 H (47-80) % Lymphocytes 9.0 L (16-45) % PT 24.6 H (9.5-12.1) SECONDS pO2 (83-108) mmHg HCO3 (18-23) mmol/L Oxyhemoglobin (94-99) % vol ABG pH (7.35-7.45) ABG O2 Saturation (95-98) % ABG Base Excess (-2 - 3) mmol/L Carboxyhemoglobin (0-1.5) % Total Hemoglobin (11.6-16) g/dl Actual Respiration Rate (10-18) /MIN Chloride 97 L (98-107) mmol/L Carbon Dioxide 34.0 H (22-29) mmol/L Random Glucose 140 H (74-109) mg/dL NT-Pro-B Natriuret Pep (<450) pg/mL 08/12/18 08/12/18 Range/Units 17:40 18:11 MCV (81-97) fl MCHC (32-36) g/dl RDW (11.5-14.5) % Neutrophils % (47-80) % Lymphocytes (16-45) % PT (9.5-12.1) SECONDS pO2 50.0 L (83-108) mmHg HCO3 30.7 H (18-23) mmol/L Oxyhemoglobin 86.3 L (94-99) % vol ABG pH 7.47 H (7.35-7.45) ABG O2 Saturation 88.2 L (95-98) % ABG Base Excess 6.7 H (-2 - 3) mmol/L Carboxyhemoglobin 2.0 H (0-1.5) % Total Hemoglobin 11.3 L (11.6-16) g/dl Actual Respiration Rate 30.0 H (10-18) /MIN Chloride (98-107) mmol/L Carbon Dioxide (22-29) mmol/L Random Glucose (74-109) mg/dL NT-Pro-B Natriuret Pep 41108.00 H (<450) pg/mL Condition at Discharge: (2) Stable Discharge Medications - Discharge Medications Prescriptions: Prednisone [Prednisone 20Mg] 20 mg PO DAILY 5 Days #5 tab Home Medications: Ambulatory Orders Albuterol Sulfate [Ventolin Hfa] 1 - 2 puff IH Q4-6HR #1 inhaler 06/15/17 [Last Taken Unknown] Atorvastatin Calcium 20 mg PO QHS 06/15/17 [Last Taken Unknown] Albuterol Sulfate 0.083% [Neb] [Albuterol Sulfate] 3 ml NEB .EVERY 4-6 HOURS PRN 08/27/17 [Last Taken 04/22/18] Budesonide/Formoterol Fumarate [Symbicort 80-4.5 Mcg Inhaler] 2 puff INH BID 12/09 [Last Taken 05/25/18] Albuterol Sulfate 0.083% [Neb] [Albuterol Sulfate] 2.5 mg INH .EVERY 4-6 HOURS # 120 nebulization solution 08/29/17 [Last Taken Unknown] Benzonatate [Tessalon Perles] 100 mg PO TID PRN capsule 08/29/17 [Last Taken Unknown] Cholecalciferol (Vitamin D3) [Vitamin D3] 1,000 unit PO DAILY 04/22/18 [Last Taken Unknown] Furosemide 40 mg PO DAILY 04/22/18 [Last Taken 08/12/18] Potassium Chloride 10 meq PO DAILY 04/22/18 [Last Taken 05/25/18] Warfarin Sodium 2.5 mg PO ASDIR 04/22/18 [Last Taken Unknown] Prednisone 10 mg PO DAILY 05/25/18 [Last Taken 08/12/18] Warfarin Sodium 5 mg PO ASDIR 05/25/18 [Last Taken Unknown] Prednisone [Prednisone 20Mg] 20 mg PO DAILY 5 Days #5 tab 08/13/18 [Last Taken Unknown] Discharge Plan - Discharge Instructions Activity at Discharge: Wear Oxygen At All Times Diet at Discharge: Low Fat, Low Cholesterol, Low Salt Diet Instructions: Pulmonary Fibrosis (DC), COPD (Chronic Obstructive Pulmonary Disease) (DC) Additional Instructions: 2 Activity: Wear Oxygen At All Times on 6L 2 Diet: Low Fat, Low Cholesterol Low Salt Diet 2 Consults: [] 2 Follow Up: [Follow up with your PCP Dr. Ortiz within 1 week to discuss plans for Palliative care.] 2 Dressing/Wound Care: (Type) (Change) 2 Additional: [] Please take Prednisone 20mg daily for the next 5 days then revert back to taking 5mg daily doses. Continue using Tessalon Perles as needed for your cough and use Robitussin DM every 6 hours when needed. Keep your oxygen between 4-6 liters depending on if you are sitting or up and walking. Quality Measures - Quality Measures Quality Measures: Advance Directives, Documentation of Current Medications in Medical Record, Elder Maltreatment Screen and Follow-Up Plan, Heart Failure, Screening for High Blood Pressure and F/U Documented - Current Medications Quality Measure: Measure #130: Documentation of Current Medications Documentation of Current Medications: <Current Medications Documented/Reviewed> [[id number]] - Blood Pressure Screening Quality Measure: Screening for High Blood Pressure and Follow-Up Documented Does Patient Have Any of the Following: No Blood Pressure Classification: Normal BP Reading Systolic Measurement: 92 Diastolic Measurement: 67 Screening for High Blood Pressure: < Normal BP, F/U Not Required > [L7503] - Heart Failure (FITO/ARB Therapy) Quality Measure: Heart Failure Left Ventricular Systolic Function: Unknown FITO Inhibitor or ARB Therapy for LVSD: Not Eligible - Heart Failure (Beta-easton Therapy) Quality Measure: Heart Failure Left Ventricular Systolic Function: Unknown Beta-Easton Therapy for LVEF < 40%: Not Eligible - Advance Directives Quality Measure: Measure #47: Care Plan Advance Directives Established: No Advance Directives Information Provided To Patient: Declined Advance Directives on File: No Living Will: Yes Power of Newspaper Carriers Supervisor: No Power of Newspaper Carriers Supervisor Name: Dave Advance Care Planning: <Care Plan/Decision Maker Not Decided; Discussed & Documented> [[id number]] - Elder Abuse Suspicion Index Screening: Elder Abuse Suspicion Index Screening Rely on people for bathing, dressing, shopping, banking, etc: Yes Prevented from getting food, clothes, medication, etc: No Made to feel shamed or threatened by someone: No Forced to sign papers or use money against will: No Feel afraid, touched in ways not wanted or hurt physically: No Poor eye contact, withdrawn, malnourished, cuts or bruises: No Screening Result: Negative result EASI Reference Information: Jennyfer REEDER, Get C, Sunny D, Sue Castaneda.Development and validation of a tool to assist physicians identification of elder abuse: The Elder Abuse Suspicion Index (EASI ). Journal of Elder Abuse and Neglect, 2008; 20 (3): 276-300. - Elder Maltreatment Screen Quality Measures: Elder Maltreatment Screen and Follow-Up Plan Elder Maltreatment Screen: <Negative, No Follow-Up Plan Required> [[id number]]
== END 2018-08-13 18:24 | disposition home or self-care (01) | DRG 191 ==
LOC: ER 17:28 → MEDSURG 20:42
PROVIDERS: ADMIT Internal Medicine; ATTEND Internal Medicine
DX: J44.1 Chronic obstructive pulmonary disease with (acute) exacerbation (principal); I50.32 Chronic diastolic (congestive) heart failure; J84.10 Pulmonary fibrosis, unspecified; E78.00 Pure hypercholesterolemia, unspecified; Z86.718 Personal history of other venous thrombosis and embolism; Z79.01 Long term (current) use of anticoagulants; Z66 Do not resuscitate
CPT/HCPCS: 36600; 71046; 80048; 82375; 82803; 83880; 84484; 85027; 85610; 85730; 93005; 93010; 94640; 94760; 94761; 96374; 96375; 99223; 99285; J1940; J2930